=== PATIENT | male | born 1940 | race Caucasian/White ===

== ENCOUNTER 2020-06-07 12:25 | Inpatient (IN) | payer MEDICARE, OTHER ==
[~2020-06-07] VITALS: Ht 170.2 cm; Wt 68.5 kg
--- NOTE | ~2020-06-07 | RHP ---
PATIENT: LEESA MORENO MEDICAL RECORD: [id number] ACCOUNT: [id number] LOCATION:[facility]1116 : 40 ADMISSION DATE: 06/07/20 REHABILITATION HISTORY AND PHYSICAL EXAMINATION POST ADMISSION PHYSICIAN EXAMINATION ADMITTING DIAGNOSES: Cerebrovascular accident and peritoneal dialysis. HISTORY OF PRESENT ILLNESS: The patient is admitted to inpatient rehab secondary to ischemic stroke. He is a 79-year-old gentleman who presented to the [facility] ER with extremity weakness and right-sided facial droop. The patient was undergoing peritoneal dialysis close to noon when he suddenly developed difficulty talking with associated facial droop and facial redness. There was no extremity weakness. EMS was activated. The patient has a past history of hypertension, AFib. He was not on anticoagulation. He has got hyperlipidemia, COPD, and end-stage renal disease, on peritoneal dialysis. The patient was admitted to the ICU with CVA and acute ischemic stroke involving the left middle cerebral artery territory per CT. The patient was continued on appropriate treatment. He had inpatient dialysis done there. The patient was seen and evaluated by PT and OT there. He has severe spoken language expression characterized by poor naming and repetition. He has hard time finding his words at this time, so he will definitely need inpatient therapy. He has also got dysphagia. He is on a renal pureed diet with honey thick liquids and crushed medications. The patient on physical therapy, static and dynamic sitting is fair. His standing is fair. He is min assist for bed mobility, supine to sit, sit to stand and bed to chair. He is actually requiring 2 people assist. The patient is continued on his appropriate medications. He will need to be monitored closely for his cognition, medical adjustments, monitor pain control, decreased activity tolerance, decreased strength, balance deficit, decreased range of motion, gait disturbance and impaired mobility. These are all barriers to his discharge home. He will also require intensive therapy and medical management and actually to get back to his prior level of functioning. COMORBIDITIES: In this patient include atrial fib, altered mental status, aphasia, bradycardia, coronary artery disease, chronic back pain, COPD, degenerative disc disease, debility, decreased mobility, decrease in physical functioning, difficulty walking, degenerative joint disease, reflux, hypertension, nausea, right-sided weakness, and safety awareness problems. PAST MEDICAL HISTORY: Significant for hypertension, atrial fib. He has hyperlipidemia, COPD, end-stage renal disease, chronic back pain, chronic kidney disease. He has got an enlarged prostate, inflammatory arthritis, nutritional induced anemia. PAST SURGICAL HISTORY: Includes a Watchman procedure. He has had renal ablation, transrectal renal ultrasound, lumbar laminectomy. He has had a kyphoplasty. ALLERGIES: OXYCODONE AND LYRICA. CURRENT MEDICATIONS: He is on Uloric 40 mg daily, mag-ox 400 mg daily, aspirin chewable 81 mg daily, Pepcid 20 mg daily, Plavix 75 mg daily, amlodipine 10 mg daily, spironolactone 25 mg b.i.d., Bumex 2 mg b.i.d., atorvastatin 80 mg at bedtime, Eliquis 2.5 mg b.i.d., Perforomist 20 mcg daily. He is on budesonide 0.5 mg b.i.d., Zofran 4 mg q.6 hours p.r.n., DuoNeb updrafts, and polyethylene HISTORY AND PHYSICAL [id number] LEESA MORENO RAY glycol 17 grams in 8 ounces of water daily. HABITS: No alcohol or tobacco use. FAMILY HISTORY: Noncontributory. SOCIAL HISTORY: The patient hopes to return back home and get back to his prior level of functioning. REVIEW OF SYSTEMS: GENERAL: He does complain of some weakness and fatigue. HEENT: Denies cold, cough, congestion. CARDIOVASCULAR: Denies any chest pain. OBJECTIVE: VITAL SIGNS: Stable. He does appear to be somewhat bradycardic consistently. His blood pressures are somewhat elevated on the systolic range. GENERAL: A well-developed gentleman in no acute distress, alert upon exam. HEENT: Normocephalic and atraumatic. Mucosa moist. NECK: Supple with no lymphadenopathy. LUNGS: Clear in upper alan. No wheezing or rales. HEART: Somewhat bradycardic. ABDOMEN: Soft, benign, nondistended. Positive bowel sounds times 4. EXTREMITIES: No clubbing, cyanosis or edema. NEUROLOGIC: He has got diffuse weakness, right greater than left. He does have some difficulty with enunciation. LABORATORY DATA: His white count 6.2, H&H of 10 and 34 and platelet count is noted to be 138. His other labs are pending at this time. ASSESSMENT: This is a 79-year-old gentleman admitted to the rehab with a working diagnosis cerebrovascular accident complicated by peritoneal dialysis. The patient has potential to make improvements here in the rehab. He will require: A. Physical therapy to improve gait, all transfer skills and bed mobility to a modified independent level. B. Occupational therapy to improve activities of daily living. C. Case management to help with discharge planning and placement options. D. Nutrition to assist with nutritional needs. E. Rehabilitation nursing to assist in monitoring the patient's underlying medical conditions and to assist with any type of bowel or bladder management. 1. The patient's current medication and medical care will be continued. 2. Will be placed on standard fall precautions. 3. The patient's estimated length of stay approximately 7-10 days. We will discuss the patient during care team staff meeting this week. Appreciate nephrology following this with him throughout his stay and managing his renal functions. I will see him again in the a.m. TRANSINT:[id number] Voice Confirmation ID: [id number] DOCUMENT ID: [id number] 06/19/2020 michaela GROVES notes whether there has been none or any medical/functional change since admission: - No change since preadmission screen. HISTORY AND PHYSICAL [id number] LEESA MORENO attests patient continues to be appropriate for IRF: - Continues to be appropriate. MAXI MELGOZA MD CC: [id number] DICTATION DATE: 06/08/20904 PHYSIOTHERAPY PRACTICE MANAGER: 06/08/20 104 ADM IN [facility] [address] [place] [address]
--- NOTE | 2020-06-07 16:24 | NUR ---
RECIEVED FROM [facility] PER AMBULANCE TO ROOM 1116.ALERT.SPEECH SLURRED.ORIENTED TO ROOM AND SURROUNDINGS.CLIN REACH.ON NECTAR THICK LIQUIDS.
[2020-06-07 18:13] VITALS: BP 160/58; BMI 23.8
[2020-06-07] MEDS ORDERED: PLAVIX75 MG PO (18:44)
[2020-06-07] MEDS ORDERED: BUMEX2 MG PO (18:44)
[2020-06-07] MEDS ORDERED: NORVASC5 MG PO (18:45)
[2020-06-07] MEDS ORDERED: CARAFATE1 G PO (18:45)
[2020-06-07] MEDS ORDERED: ALDACTONE25 MG PO (18:45)
[2020-06-07] MEDS ORDERED: PROAIR HFA8.5 G1 (18:46)
[2020-06-07] MEDS ORDERED: PLAVIX75 MG (18:46)
[2020-06-07] MEDS ORDERED: ELIQUIS2.5 MG PO (18:47)
[2020-06-07] MEDS ORDERED: LIPITOR40 MG PO (18:47)
[2020-06-07] MEDS ORDERED: NORVASC5 MG (18:48)
[2020-06-07] MEDS ORDERED: BAYER CHEWABLE81 MG PO (18:48)
[2020-06-07] MEDS ORDERED: ULORIC40 MG PO (18:49)
[2020-06-07] MEDS ORDERED: MAG-OX 400 MG400 MG PO (18:49)
[2020-06-07] MEDS ORDERED: PROTONIX40 MG PO (18:49)
[2020-06-07] MEDS ORDERED: CARDURA4 MG PO (18:50)
[2020-06-07 19:00] VITALS: BP 169/60
--- NOTE | 2020-06-07 19:28 | NUR ---
NOTIFIED TEODORA BANKS APN DOCUMENT ANALYST FOR RENAL FOR CONSULT
--- NOTE | 2020-06-07 19:42 | NUR ---
AWAKE AND RESTING IN BED. PD EXCHANGE COMPLETE. ALERT WITH NOTED CONFUSION AND APHASIA. HAS WORD SALAD. RESPIRATIONS UNLABORED. PERITONEAL CATHETER INTACT. RENAL GROUP CONSULTED. NO ACUTE DISTRESS NOTED. CALL LIGHT IN REACH.
[2020-06-08] VITALS: BP 153/75
--- NOTE | 2020-06-08 06:22 | NUR ---
PD EXCHANGE IN PROGRESS. QUIET HOURS. NO ACUTE DISTRESS NOTED. CONTINUES TO HAVE WORD SALAD. DID USE URINAL THIS SHIFT AND HAD NO INCONTINENCE EPISODES. PD CATH IN PLACE.
[2020-06-08 06:26] VITALS: BP 157/63
[2020-06-08 09:00] LABS: BASOPHILS 0.6 % (0-2); EOSINOPHILS 3.2 % (0-7); HEMOGLOBIN 10.7 g/dL (13.5-17.5); IMMATURE GRANULOCYTES 0.3 % (0-5); LYMPHOCYTE ABS# 0.68 10x3/uL (1.32-3.57); MCH 27.1 pg (26.0-34.0); MCHC 31.5 g/dL (31.0-37.0); MCV 86.1 fL (80.0-100.0); MEAN PLATELET VOLUME 10.2 fL (7.4-10.4); MONOCYTES 15.1 % (2-11); NEUTROPHILS 69.8 % (40-80); PLATELET COUNT 138 10x3/uL (130-400); RBC 3.95 10x6/uL (4.20-6.10); RDW 20.1 % (11.5-14.5); WBC 6.2 10x3/uL (4.8-10.8)
[2020-06-08 09:22] LABS: ANION GAP 12.4 mmol/L (8-16); CALCIUM 8.6 mg/dL (8.5-10.1); CARBON DIOXIDE 28.9 mmol/L (21.0-32.0); CREATININE - SERUM 2.4 mg/dL (0.6-1.3); POTASSIUM - SERUM 3.3 mmol/L (3.5-5.1)
[2020-06-08 12:00] VITALS: BP 146/78
--- NOTE | 2020-06-08 12:14 | NUR ---
PATIENT ADMITTED TO [facility] FROM AN OUTSIDE FACILITY. DISCHARGE PLANS ARE FOR PATIENT TO HIM TO RETURN TO HIS HOME. WILL CONTINUE TO FOLLOW WITH PATIENT.
--- NOTE | 2020-06-08 13:27 | NUR ---
SITTING UP IN BED. HEAD OF BED APPX 80 DEGREES. HE IS FEEDING HIMSELF LUNCH SLOWLY. LIQUIDS ARE THICKENED. NO COUGHING OR CHOKING NOTED AFTER SWALLOWING. GROSSLY WEAK. SPEECH SLURRED. MOVEMENTS SLOW. CALL LIGHT IN REACH
[2020-06-08 16:37] VITALS: Ht 170.2 cm; Wt 68.5 kg
[2020-06-08 18:30] VITALS: BP 126/41
--- NOTE | 2020-06-08 18:49 | NUR ---
BEDSIDE REPORT COMPLETE. RECEIVED PT SITTING UP IN W/C. ALERT AND ORIENTED X1. DENIES ANY NEEDS OR PAIN. SLOW TO RESPOND AND INCONSISTANT WITH FOLLOWING DIRECTIONS. PD CATH TO RUQ. NO IV OR OXYGEN. NO DISTRESS NOTED. CALL LIGHT AND WATER WITHIN REACH. DES ALARM ON. CPOC
[2020-06-08 21:25] VITALS: BP 126/41
--- NOTE | 2020-06-09 00:16 | NUR ---
PT LYING IN BED SUPINE EYES CLOSED RESTING. HOB ELEVATED. PD DRAIN STARTED. RR EVEN AND UNLABORED. DES ALARM ON
--- NOTE | 2020-06-09 00:55 | NUR ---
PD DRAIN OUT COMPLETED 500ML. STARTED PD IN
--- NOTE | 2020-06-09 04:04 | NUR ---
PT LYING IN BED ON LEFT SIDE EYES CLOSED RESTING. RR EVEN AND UNLABORED. DES ALARM ON
[2020-06-09 05:55] VITALS: BP 155/54
--- NOTE | 2020-06-09 10:09 | NUR ---
PATIENTS PCP IS DR. GROVER WOLF.
[2020-06-09 12:24] VITALS: BP 149/57
[2020-06-09 18:26] VITALS: BP 148/58
--- NOTE | 2020-06-09 18:50 | NUR ---
BEDSIDE REPORT COMPLETE. RECEIVED PT SITTING UP IN BED. ALERT AND RESPONSIVE. PT IS APHASIC SPEECH IS GARBLED MAJORITY OF THE TIME, FEW WORDS UNDERSTOOD. PT DOES ATTEMPT TO COMMUNICATE, BUT DOES GET FRUSTRATED WHEN UNABLE TO VOICE NEEDS. NO IV OR OXYGEN NOTED. PD CATH INTACT RLQ. DRESSING INTACT NO DRAINAGE NOTED. GENERALIZED BRUISING NOTED. SCAB TO BRIDGE OF NOSE LOOSE SOME BLEEDING NOTED. BANDAID APPLIED. CALL LIGHT AND NECTAR THICK WATER WITHIN REACH. DES ALARM ON. CPOC
[2020-06-09 20:28] VITALS: BP 148/58
[2020-06-10 00:16] VITALS: BP 151/57
--- NOTE | 2020-06-10 02:14 | NUR ---
PT LYING IN BED ON LEFT SIDE EYES CLOSED RESTING. RR EVEN AND UNLABORED. DES ALARM ON
[2020-06-10 06:08] VITALS: BP 152/58
--- NOTE | 2020-06-10 06:26 | NUR ---
PT LYING IN BED EYES CLOSED RESTING. RR EVEN AND UNLABORED. NO ACUTE CHANGES IN CONDITION NOTED THIS SHIFT. DES ALARM ON
--- NOTE | 2020-06-10 08:00 | NUR ---
SHIFT ASSMT COMPLETED.
--- NOTE | 2020-06-10 12:00 | NUR ---
EATING LUNCH. VISITING
[2020-06-10 12:05] VITALS: BP 150/51
--- NOTE | 2020-06-10 14:20 | NUR ---
Nutrition Follow-up: ESRD on PD Diet: Renal Mech Chopped Gravy to all meats NECTAR Thick liquids + Nepro TID PO intake: none recorded in EMR or on door sheet. Spoke with patient at bedside who states that his appetite is getting a little better. States that he likes and drinks Nepro when the kitchen sends it. Last BM: 06/09/20 Wt: 151# (06/08/20) Meds noted: senokot, miralax, magox, bumex Labs noted: PO4 3.2(WNL) Recommend continue current renal diet, texture/consistency per [employer]ER recommendations. Continue Nepro TID. RD will follow-up 06/15/20.
--- NOTE | 2020-06-10 16:11 | NUR ---
CARE TEAM MEETING: PATIENT IS PROGRESSING IN THERAPY. HIS TENATIVE DC DATE IS 06/25/20. WILL CONTINUE TO FOLLOW WITH PATIENT. HE WILL BE RA AT NEXT MEETING.
[2020-06-10 18:27] VITALS: BP 141/59
--- NOTE | 2020-06-10 19:52 | NUR ---
AWAKE AND ALERT. RESTNIG IN BED WITH RESPIRATIONS UNLABORD. NO DISTRESS NOTED. ASHASIAC. WEAK IN ALL EXTREMITIES. PERITONEAL DIALYSIS TUBE IN PLACE. NO DISTRESS NOTED. CALL LIGHT IN REACH.
[2020-06-11 00:15] VITALS: BP 151/57
[2020-06-11 05:11] VITALS: BP 150/58
--- NOTE | 2020-06-11 05:40 | NUR ---
QUIET HOURS. RESTING IN BED WITH RESPIRATIONS UNLABORED. MEDICATED RECENTLY FOR BACK AND LEG PAIN. SEE MAR. CALL LIGHT IN REACH.
--- NOTE | 2020-06-11 05:43 | NUR ---
QUIET HOURS. NO ACUTE CHANGES IN CONDITION THIS SHIFT. PD EXCHANGES DONE. PD CATHETER INTACT. RESTING IN BED WITH NO DISTRESS NOTED.
[2020-06-11 11:48] VITALS: BP 129/51
[2020-06-11 18:05] VITALS: BP 159/65
--- NOTE | 2020-06-11 19:32 | NUR ---
AWAKE AND ALERT. RESTING IN BED WITH RESPIRATIONS UNLABORED. APHASIC. PD CATHETER IN PLACE. NO ACUTE DISTRESS NOTED. CALL LIGHT IN REACH.
[2020-06-12 00:10] VITALS: BP 147/53
--- NOTE | 2020-06-12 05:35 | NUR ---
QUIET HOURS. NO ACUTE CHANGES IN CONDITION THIS SHIFT. RESTING IN BED WITH NO DISTRESS NOTED. PD CATHETER IN PLACE.
[2020-06-12 05:38] VITALS: BP 150/55
[2020-06-12 08:01] LABS: BASOPHILS 0.4 % (0-2); EOSINOPHILS 2.3 % (0-7); HEMATOCRIT 31.6 % (42.0-54.0); IMMATURE GRANULOCYTES 0.3 % (0-5); LYMPHOCYTES 10.7 % (15-50); MCH 26.9 pg (26.0-34.0); MCHC 31.6 g/dL (31.0-37.0); MCV 84.9 fL (80.0-100.0); MEAN PLATELET VOLUME 10.5 fL (7.4-10.4); MONOCYTES 10.2 % (2-11); NEUTROPHIL ABS# 5.67 10x3/uL (1.78-5.38); NEUTROPHILS 76.1 % (40-80); PLATELET COUNT 157 10x3/uL (130-400); RBC 3.72 10x6/uL (4.20-6.10); RDW 18.9 % (11.5-14.5); WBC 7.5 10x3/uL (4.8-10.8)
[2020-06-12 08:14] LABS: ALBUMIN 2.7 g/dL (3.4-5.0); ANION GAP 11.4 mmol/L (8-16); BILIRUBIN - TOTAL 1.42 mg/dL (0.2-1.3); CALCIUM 8.1 mg/dL (8.5-10.1); CARBON DIOXIDE 31.2 mmol/L (21.0-32.0); CREATININE - SERUM 2.6 mg/dL (0.6-1.3); PHOSPHOROUS 3.4 mg/dL (2.5-4.9); PROTEIN - SERUM 5.8 g/dL (6.4-8.2)
[2020-06-12 08:18] LABS: POTASSIUM - SERUM 2.6 mmol/L (3.5-5.1)
[2020-06-12 12:22] VITALS: BP 134/54
--- NOTE | 2020-06-12 13:50 | NUR ---
HAS BEEN SITTING UP IN WC MORE TODAY. VISITED. DR HILLIARD (RENAL MD) ROUNDED THIS AFTERNOON. HIS APPETITE IS FAIR. SPEECH IS SLOW. FOLLOWS COMMANDS.
--- NOTE | 2020-06-12 18:55 | NUR ---
BEDSIDE REPORT COMPLETE. RECEIVED PT LYING IN BED. ALERT AND RESPONSIVE. PT IS APHASIC. SLOW TO RESPOND VERBALLY WILL FOLLOW COMMANDS. RLQ PD CATH INTACT. DRESSING C/D/I. PD CAP INTACT. BUE BRUISED. BLE SCATTERED BRUISING NOTED. PT DENIES ANY PAIN. CALL LIGHT AND WATER WITHIN REACH. DES ALARM ON. CPOC
[2020-06-12 19:45] VITALS: BP 151/57
--- NOTE | 2020-06-12 23:10 | NUR ---
BLADDER SCANNED PT PER ORDER. SCAN REVEALED 366ML. PT REFUSED STRAIGHT CATH. PT URINATED 250ML IN URINAL. RESCANNED BLADDER STILL RETAINING 266ML. PT STILL REFUSES TO ALLOW THIS NURSE TO STRAIGHT CATH. OFFERED PT A MALE NURSE, PT STILL REFUSED. EDUCATED PT ON URINARY RETENTION. WILL RESCAN 3-4 HOURS.
[2020-06-13 00:02] VITALS: BP 138/51
--- NOTE | 2020-06-13 03:17 | NUR ---
PT LYING IN BED SUPINE EYES CLOSED RESTING. RR EVEN AND UNLABORED. CALL LIGHT WITHIN REACH. DES ALARM ON.
--- NOTE | 2020-06-13 04:16 | NUR ---
BLADDER SCANNED REVEALED 243ML. FOUND PT BRIEF WET. PT STATED NEED TO URINATE. PROVIDED URINAL PT VOIDED 200ML MICHEL URINE. PROVIDED PT BATH WIPE FOR PERIAREA, PT PERFORMED HYGIENE. ASSISTED WITH DONNING ON CLEAN BRIEF. NO OTHER NEEDS VOICED. PD DRAIN OUT STARTED. DES ALARM ON
--- NOTE | 2020-06-13 05:33 | NUR ---
PT LYING IN BED SUPINE EYES CLOSED RESTING. NO ACUTE CHANGES IN CONDITION THIS SHIFT. PD CATH DRESSING CHANGED. NO DRAINAGE NOTED. CLEANSED AREA WITH NS PAT DRY 4X4, APPLIED GENTAMYCIN CREAM TO PD SITE, COVERED WITH DRAIN GAUZE, SECURED WITH TAPE. SECURED PD CATH TUBING TO ABDOMEN. PT TOLERATED WELL. PT DENIES ANY PAIN. ENCOURAGED URINATION, VOIDED 100ML MICHEL URINE IN URINAL. CALL LIGHT AND WATER WITHIN REACH. DES ALARM ON
[2020-06-13 05:49] VITALS: BP 144/54
--- NOTE | 2020-06-13 10:56 | NUR ---
SITTING UP IN BED RESTING QUIETLY AND WATCHING TV. POSITION CHANGES DONE DURING PD TO TRY TO INCREASE DRAINING AMOUNT. HE DENIES NEEDS. APPETITE POOR. VOIDS IN URINAL.
[2020-06-13 12:00] VITALS: BP 143/59
--- NOTE | 2020-06-13 18:45 | NUR ---
BEDSIDE REPORT COMPLETE. RECEIVED PT LYING IN BED. ALERT AND RESPONSIVE. REPOSITIONED PT TO TOP OF BED WITH ASSIST FROM MINOO TRUONG. BUE AND LE BRUISING NOTED. PT HAS EXPRESSIVE APHASIA BUT CAN ANSWER YES AND NO QUESTIONS WITH FEW OTHER COMPREHENSABLE WORDS. PT HAS TROUBLE WORD FINDING WELL. RLQ PD CATH DRESSING INTACT. TUBING SECURED TO ABDOMEN. DENIES ANY PAIN OR NEEDS. CALL LIGHT AND WATER WITHIN REACH. DES ALARM ON. CPOC
[2020-06-13 19:00] VITALS: BP 144/54
--- NOTE | 2020-06-13 22:02 | NUR ---
PD DRAIN OFF STARTED PER DR. HILLIARD ORDERS. PT LYING IN BED ON RIGHT SIDE RESTING COMFORTABLY. WILL CHANGE POSITION IF NEEDED TO ASSIST WITH DRAINOFF.
--- NOTE | 2020-06-13 22:25 | NUR ---
1400ML PD OUTPUT. PLACED PT SUPINE IN REVERSE [place] AND ELEVATED HEIGHT OF BED TO ASSIST WITH FURTHER DRAIN OFF.
--- NOTE | 2020-06-13 22:45 | NUR ---
1800ML PD DRAIN OFF. DISCONNECTED PT AND APPLIED NEW CAP. ASSISTED PT WITH URINAL 200ML CONCENTRATED URINE VOIDED. POSITIONED PT ON RIGHT SIDE USING PILLOW FOR SUPPORT. PT DENIES ANY OTHER NEEDS OR PAIN. CALL LIGHT WITHIN REACH. DES ALARM ON.
[2020-06-14] VITALS (7 sets, daily range): BP systolic 129–155; BP diastolic 53–68
--- NOTE | 2020-06-14 01:44 | NUR ---
PT LYING IN BED ON RIGHT SIDE EYES CLOSED RESTING. TOILETING OFFERED PT DENIES NEEDS. REPOSITIONED PT TO LEFT SIDE USING PILLOW FOR SUPPORT. NO OTHER NEEDS VOICED. PD CATH SECURED TO ABDOMEN. CALL LIGHT WITHIN REACH. DES ALARM ON.
--- NOTE | 2020-06-14 03:30 | NUR ---
INCONTINENT CARE PROVIDED FOR URINE INCONTINENCY. COMPLETE LINEN CHANGE AND BEDBATH PERFORMED. ASSISTED PT WITH MOD ASSIST IN DRESSING. PT DENIES ANY NEEDS. POSITIONED ON LEFT SIDE USING PILLOWS FOR SUPPORT. CALL LIGHT AND WATER WITHIN REACH. DES ALARM ON
--- NOTE | 2020-06-14 05:16 | NUR ---
PT LYING IN BED ON LEFT SIDE EYES OPEN. REPOSITIONED TO RIGHT SIDE USING PILLOWS FOR SUPPORT. TOILETING OFFERED. PT DENIES NEED. DENIES PAIN. NO ACUTE CHANGES IN CONDITION THIS SHIFT. CALL LIGHT AND WATER WITHIN REACH. DES ALARM ON
[2020-06-14 07:57] LABS: BASOPHILS 0.3 % (0-2); EOSINOPHILS 1.3 % (0-7); HEMATOCRIT 29.4 % (42.0-54.0); HEMOGLOBIN 9.5 g/dL (13.5-17.5); IMMATURE GRANULOCYTES 0.1 % (0-5); LYMPHOCYTE ABS# 0.82 10x3/uL (1.32-3.57); LYMPHOCYTES 11.9 % (15-50); MCH 27.5 pg (26.0-34.0); MCHC 32.3 g/dL (31.0-37.0); MEAN PLATELET VOLUME 9.9 fL (7.4-10.4); MONOCYTES 11.6 % (2-11); NEUTROPHIL ABS# 5.16 10x3/uL (1.78-5.38); NEUTROPHILS 74.8 % (40-80); PLATELET COUNT 138 10x3/uL (130-400); RBC 3.46 10x6/uL (4.20-6.10); WBC 6.9 10x3/uL (4.8-10.8)
[2020-06-14 08:12] LABS: ALBUMIN 2.6 g/dL (3.4-5.0); ANION GAP 11.5 mmol/L (8-16); BILIRUBIN - TOTAL 1.53 mg/dL (0.2-1.3); CALCIUM 7.8 mg/dL (8.5-10.1); CARBON DIOXIDE 30.6 mmol/L (21.0-32.0); CREATININE - SERUM 2.7 mg/dL (0.6-1.3); PHOSPHOROUS 2.8 mg/dL (2.5-4.9); POTASSIUM - SERUM 3.1 mmol/L (3.5-5.1); PROTEIN - SERUM 5.2 g/dL (6.4-8.2)
--- NOTE | 2020-06-14 10:19 | NUR ---
RESTING QUIETLY IN BED. ROLLED FROM SIDE TO SIDE. SEEMS TO BE DRAINING BETTER WHEN IN [facility]. SEVERAL BRUISING AREAS NOTED TO LEGS AND ARMS. SPEECH GARBLED. SLOW TO FOLLOW COMMANDS. APPETITE POOR. STILL MAKES URINE AND USES URINAL. IS CONT OF BOWEL AND BLADDER. TRAY SET UP FOR MEALS. SPOT CHECKS DONE FOR SWALLOWING PRECAUTIONS. LUNG SOUNDS ARE WET BUT HE CAN COUGH AND CLEAR AIRWAY AND LUNGS. CALL LIGHT IN REACH. BED IN LOWEST POSITION, SIDE RAILS UP X2.
--- NOTE | 2020-06-14 18:47 | NUR ---
BEDSIDE REPORT COMPLETE. RECEIVED PT SITTING UP IN BED. ALERT AND RESPONSIVE. PT HAS EXPRESSIVE APHASIA. RLQ PD CATH AND DRESSING INTACT. REPORTED DRESSING CHANGE TODAY PER ALEXI HENNESSY. PT DENIES ANY PAIN. BRUISING TO BLE AND UE. PT BLEEDING ON LEFT SIDE OF FACE APPARENTLY SCRATCHED HIMSELF. BANDAID APPLIED. CALL LIGHT AND WATER WITHIN REACH. DES ALARM ON. CPOC
--- NOTE | 2020-06-14 23:56 | NUR ---
PT LYING IN BED ON RIGHT SIDE EYES CLOSED RESTING. REPOSITIONED TO LEFT SIDE DENIES ANY NEEDS OR PAIN. TOILETING OFFERED PT DENIES NEED. CALL LIGHT WITHIN REACH. DES ALARM ON
--- NOTE | 2020-06-15 02:30 | NUR ---
PT LYING IN BED SUPINE EYES CLOSED RESTING. POSITIONED TO RIGHT SIDE. DENIES ANY NEEDS. NO DISTRESS NOTED. CALL LIGHT WITHIN REACH. DES ALARM ON
--- NOTE | 2020-06-15 04:48 | NUR ---
PT LYING IN BED ON RIGHT SIDE EYES CLOSED RESTING. REPOSITIONED TO LEFT SIDE. 200ML YELLOW URINE EMPTIED FROM URINAL. NO ACUTE CHANGES IN CONDITION THIS SHIFT. CALL LIGHT WITHIN REACH. DES ALARM ON
[2020-06-15 05:56] VITALS: BP 141/53
--- NOTE | 2020-06-15 10:56 | NUR ---
Nutrition Re-Assessment ESRD on PD Diet: Renal High K foods PO intake: ~58% average x last 6 meals recorded Last BM: 06/11/20 Wt: 151# (06/08/20) Meds noted: k-dur, miralax, senokot, magox, bumex Labs noted: K 3.1(L), BUN 35(H), Cr 2.7(H), GFR 24(L), Alb 2.6(L) Skin: PU to buttocks Estimated nutrition needs: [id number] sandy (25-35 Act), 82-89gms protein (1.2-1.3), 1000mL +UOP (or per MD) Nutrition diagnosis: Altered nutrition related lab values r/t ESRD AEB BUN 35(H), Cr 2.7(H), GFR 24(L). Nutrition goals: -PO intake =/>75% -Dry weight stable Recommendations/Interventions: -Continue current diet/or per Renal MD -Will continue to honor food preferences within diet restrictions -RD will follow-up 06/17/20.
[2020-06-15 12:07] VITALS: BP 133/51
--- NOTE | 2020-06-15 12:17 | NUR ---
SITTING UP IN WC IN ROOM WAITING ON LUNCH. DENIES NEEDS OR PAIN. BUE AND HEAD SHAKES BUT HE CAN DO ALOT OF THINGS FOR HIMSELF. BRUISING NOTED TO UPPER AND LOWER EXTREMITIES. CALL LIGHT IN REACH
--- NOTE | 2020-06-15 19:41 | NUR ---
AWAKE AND ALERT. RESTING IN BED WITH RESPIRATIONS UNLABORED. DIALYSIS EXCHANGE COMPLETE. NO DISTRESS NOTED. CALL LIGHT IN REACH.
[2020-06-15 19:55] VITALS: BP 137/54
[2020-06-15 19:58] VITALS: BP 137/54
[2020-06-15 23:25] VITALS: BP 149/54
--- NOTE | 2020-06-16 05:28 | NUR ---
QUIET HOURS. NO ACUTE CHANGES IN CONDITION THIS SHIFT. RESTING IN BED WITH NO DISTRESS NOTED. PD CATHETER IN PLACE.
[2020-06-16 05:54] VITALS: BP 137/54
[2020-06-16 06:34] LABS: BASOPHILS 0.6 % (0-2); EOSINOPHILS 1.8 % (0-7); HEMATOCRIT 27.1 % (42.0-54.0); HEMOGLOBIN 8.7 g/dL (13.5-17.5); IMMATURE GRANULOCYTES 0.2 % (0-5); LYMPHOCYTE ABS# 0.81 10x3/uL (1.32-3.57); LYMPHOCYTES 12.4 % (15-50); MCH 27.3 pg (26.0-34.0); MCHC 32.1 g/dL (31.0-37.0); MEAN PLATELET VOLUME 9.9 fL (7.4-10.4); MONOCYTES 12.4 % (2-11); NEUTROPHIL ABS# 4.76 10x3/uL (1.78-5.38); NEUTROPHILS 72.6 % (40-80); PLATELET COUNT 160 10x3/uL (130-400); RBC 3.19 10x6/uL (4.20-6.10); RDW 18.6 % (11.5-14.5); WBC 6.6 10x3/uL (4.8-10.8)
[2020-06-16 06:58] LABS: ALBUMIN 2.6 g/dL (3.4-5.0); ANION GAP 11.4 mmol/L (8-16); BILIRUBIN - TOTAL 1.54 mg/dL (0.2-1.3); CALCIUM 8.2 mg/dL (8.5-10.1); CARBON DIOXIDE 31.1 mmol/L (21.0-32.0); CREATININE - SERUM 2.9 mg/dL (0.6-1.3); MAGNESIUM - SERUM 1.6 mg/dL (1.8-2.4); POTASSIUM - SERUM 3.5 mmol/L (3.5-5.1)
[2020-06-16 07:00] LABS: PHOSPHOROUS 3.8 mg/dL (2.5-4.9)
[2020-06-16 12:10] VITALS: BP 114/51
--- NOTE | 2020-06-16 19:59 | NUR ---
AWAKE AND ALERT. RESTING IN BED WITH RESPIRATIONS UNLABORED. NO DISTRESS NOTED. CALL LIGHT IN REACH. PD CATHETER IN PLACE.
[2020-06-16 21:04] VITALS: BP 135/50
[2020-06-17 00:10] VITALS: BP 136/53
--- NOTE | 2020-06-17 04:57 | NUR ---
QUIET HOURS. NO ACUTE CHANGES IN CONDITION THIS SHIFT. RESTING IN BED WITH NO DISTRESS NOTED. PD CATHETER IN PLACE. CALL LIGHT IN REACH.
[2020-06-17 06:00] VITALS: BP 135/50
[2020-06-17 07:34] LABS: BASOPHILS 0.5 % (0-2); EOSINOPHILS 2.1 % (0-7); HEMATOCRIT 27.4 % (42.0-54.0); HEMOGLOBIN 8.7 g/dL (13.5-17.5); IMMATURE GRANULOCYTES 0.2 % (0-5); LYMPHOCYTE ABS# 0.66 10x3/uL (1.32-3.57); LYMPHOCYTES 10.6 % (15-50); MCH 27.1 pg (26.0-34.0); MCHC 31.8 g/dL (31.0-37.0); MCV 85.4 fL (80.0-100.0); MEAN PLATELET VOLUME 10.5 fL (7.4-10.4); MONOCYTES 9.5 % (2-11); NEUTROPHIL ABS# 4.81 10x3/uL (1.78-5.38); NEUTROPHILS 77.1 % (40-80); PLATELET COUNT 180 10x3/uL (130-400); RBC 3.21 10x6/uL (4.20-6.10); RDW 18.4 % (11.5-14.5); WBC 6.2 10x3/uL (4.8-10.8)
[2020-06-17 07:51] LABS: % SATURATION 27 % (15-55); IRON 45 ug/dl (35-150); TOTAL IRON BIND CAPACITY 162 ug/dl (260-445); UNSAT IRON BIND CAPACITY 117 ug/dl (150-375)
--- NOTE | 2020-06-17 08:00 | NUR ---
SHIFT ASSMT COMPLETED.
[2020-06-17 08:17] LABS: ANION GAP 10.2 mmol/L (8-16); CALCIUM 8.6 mg/dL (8.5-10.1); CARBON DIOXIDE 30.2 mmol/L (21.0-32.0); CREATININE - SERUM 2.9 mg/dL (0.6-1.3); POTASSIUM - SERUM 3.4 mmol/L (3.5-5.1)
--- NOTE | 2020-06-17 12:00 | NUR ---
WILL DISCUSS CARE IN MEETING TODAY.
[2020-06-17 12:04] VITALS: BP 134/47
--- NOTE | 2020-06-17 14:24 | NUR ---
Nutrition Follow-up: Diet: Renal with high potassium foods PO intake: ~21% average x last 6 meals. Spoke with patient's at bedside. She states that patient is "not a big eater at home either." He had an episode of vomiting after dinner last night. His brought him in a milkshake and a diet coke today. I discussed with her that both the milk shake and diet coke are high in PO4 and typically are not allowed on a renal diet. However, his last checked PO4 is WNL and he is not eating much of his meal trays so it was okay for now. states that she did not know that and requested that I bring her Renal diet education for when patient is discharged back home. States that patient is drinking Nepro when kitchen brings them. Last BM: 06/16/20 Wt: 151# (06/08/20) Meds noted: Magox, retacrit, k-dur, miralax, senokot, bumex Labs noted: K 3.4(L), BUN 41(H), Cr 2.9(H), GFR 22(L), Glu 115(H) Skin: DTI PU to coccyx Recommendations/Interventions: -Will re-order Nepro with meals. -Will provide renal diet education prior to discharge. -Will continue to honor food preferences within diet restrictions. -RD will re-assess 06/22/20.
[2020-06-17 18:28] VITALS: BP 164/50
--- NOTE | 2020-06-17 19:05 | NUR ---
BEDSIDE REPORT COMPLETE. RECEIVED PT LYING IN BED SUPINE. ALERT AND ORIENTED X3. PT IS APHASIC. SPEECH IS SLURRED AT TIMES. BUE/BLE BRUISING NOTED. RLQ PD CATH SECURED TO ABDOMEN WITH STAT LOCK. DRESSING C/D/I. DENIES ANY PAIN OR NEEDS. CALL LIGHT AND WATER WITHIN REACH. DES ALARM ON. CPOC
[2020-06-18 00:17] VITALS: BP 152/50
--- NOTE | 2020-06-18 03:30 | NUR ---
PT LYING IN BED EYES CLOSED RESTING. RR EVEN AND UNLABORED. CALL LIGHT WITHIN REACH. DES ALARM ON
[2020-06-18 06:20] VITALS: BP 152/48
[2020-06-18 08:44] LABS: BASOPHILS 1.1 % (0-2); HEMATOCRIT 26.9 % (42.0-54.0); HEMOGLOBIN 8.5 g/dL (13.5-17.5); IMMATURE GRANULOCYTES 0.4 % (0-5); LYMPHOCYTE ABS# 0.59 10x3/uL (1.32-3.57); LYMPHOCYTES 10.9 % (15-50); MCH 27.2 pg (26.0-34.0); MCHC 31.6 g/dL (31.0-37.0); MCV 86.2 fL (80.0-100.0); MEAN PLATELET VOLUME 9.5 fL (7.4-10.4); MONOCYTES 13.3 % (2-11); NEUTROPHIL ABS# 3.93 10x3/uL (1.78-5.38); NEUTROPHILS 72.3 % (40-80); PLATELET COUNT 181 10x3/uL (130-400); RBC 3.12 10x6/uL (4.20-6.10); RDW 18.5 % (11.5-14.5); WBC 5.4 10x3/uL (4.8-10.8)
[2020-06-18 08:54] LABS: ALBUMIN 2.5 g/dL (3.4-5.0); ANION GAP 8.8 mmol/L (8-16); BILIRUBIN - TOTAL 1.04 mg/dL (0.2-1.3); CALCIUM 8.3 mg/dL (8.5-10.1); CARBON DIOXIDE 32.2 mmol/L (21.0-32.0); CREATININE - SERUM 2.9 mg/dL (0.6-1.3); PHOSPHOROUS 2.6 mg/dL (2.5-4.9); PROTEIN - SERUM 5.2 g/dL (6.4-8.2)
--- NOTE | 2020-06-18 16:29 | NUR ---
LEFT IN WC FOR MRI. SPEECH IS SO GARBLED YOU CAN NOT UNDERSTAND ANY WORDS. HE TRIES TO MAKE HIS NEEDS KNOWN BUT IS CONFUSED AND WEAKER. HIS SKIN IS BRUISED TO HIS X4 EXTREMITIES. PD CATH SECURED TO [facility] AND IS GETTING PD EXCHEANGES ORDERED. HE IS VERY WOBBLY AND UNSTEADY. APPETITE VERY POOR. WAS HERE TODAY AND SHE TALKED WITH STAFF ABOUT PD, HD AND HIS DECLINE IN STRENGTH.
[2020-06-18 18:40] VITALS: BP 161/52
--- NOTE | 2020-06-18 18:55 | NUR ---
BEDSIDE REPORT COMPLETE. RECEIVED PT LYING IN BED VISITING WITH . ALERT WITH APHASIA AND GARBLED SPEECH. RLQ PD CATH AND DRESSING INTACT. DENIES ANY NEEDS OR PAIN. NO DISTRESS NOTED. CALL LIGHT AND WATER WITHIN REACH. DES ALARM ON. CPOC
[2020-06-19 00:09] VITALS: BP 158/52
--- NOTE | 2020-06-19 01:15 | NUR ---
PT LYING IN BED ON RIGHT SIDE EYES CLOSED RESTING. RR EVEN AND UNLABORED. CALL LIGHT AND URINAL WITHIN REACH. DES ALARM ON
--- NOTE | 2020-06-19 04:56 | NUR ---
PT LYING IN BED ON RIGHT SIDE EYES CLOSED RESTING. RR EVEN AND UNLABORED. NO ACUTE CHANGES IN CONDITION THIS SHIFT. CALL LIGHT WITHIN REACH. DES ALARM ON
[2020-06-19 06:22] VITALS: BP 162/52
[2020-06-19 07:53] LABS: BASOPHILS 1.1 % (0-2); EOSINOPHILS 2.2 % (0-7); HEMATOCRIT 26.2 % (42.0-54.0); HEMOGLOBIN 8.3 g/dL (13.5-17.5); IMMATURE GRANULOCYTES 0.4 % (0-5); LYMPHOCYTE ABS# 0.75 10x3/uL (1.32-3.57); MCH 27.4 pg (26.0-34.0); MCHC 31.7 g/dL (31.0-37.0); MCV 86.5 fL (80.0-100.0); MEAN PLATELET VOLUME 9.7 fL (7.4-10.4); NEUTROPHIL ABS# 3.83 10x3/uL (1.78-5.38); NEUTROPHILS 71.3 % (40-80); PLATELET COUNT 200 10x3/uL (130-400); RBC 3.03 10x6/uL (4.20-6.10); RDW 18.6 % (11.5-14.5); WBC 5.4 10x3/uL (4.8-10.8)
[2020-06-19 08:04] LABS: ANION GAP 15.6 mmol/L (8-16); CALCIUM 8.6 mg/dL (8.5-10.1); CARBON DIOXIDE 27.1 mmol/L (21.0-32.0); CREATININE - SERUM 2.7 mg/dL (0.6-1.3)
[2020-06-19 08:12] LABS: POTASSIUM - SERUM 4.7 mmol/L (3.5-5.1)
[2020-06-19 11:51] VITALS: BP 143/53
[2020-06-19 18:00] VITALS: BP 146/55
--- NOTE | 2020-06-19 19:38 | NUR ---
AWAKE AND ALERT. RESTING IN BED. GRUNTS OUT ONE OR TWO WORDS. RESPIRATIONS UNLABORED. NO DISTRESS NOTED. CALL LIGHT IN REACH.
[2020-06-20 00:10] VITALS: BP 138/58
--- NOTE | 2020-06-20 05:43 | NUR ---
QUIET HOURS. NO ACUTE CHANGES IN CONDITION THIS SHIFT. RESTING IN BED WITH NO DISTRESS NOTED. CALL LIGHT IN REACH. PD CATHETER IN PLACE.
[2020-06-20 06:17] VITALS: BP 157/55
[2020-06-20 08:08] LABS: BASOPHILS 0.9 % (0-2); EOSINOPHILS 2.7 % (0-7); HEMATOCRIT 27.1 % (42.0-54.0); HEMOGLOBIN 8.6 g/dL (13.5-17.5); IMMATURE GRANULOCYTES 0.4 % (0-5); LYMPHOCYTE ABS# 0.73 10x3/uL (1.32-3.57); MCH 27.7 pg (26.0-34.0); MCHC 31.7 g/dL (31.0-37.0); MCV 87.4 fL (80.0-100.0); MEAN PLATELET VOLUME 9.3 fL (7.4-10.4); MONOCYTES 12.8 % (2-11); NEUTROPHIL ABS# 3.96 10x3/uL (1.78-5.38); NEUTROPHILS 70.2 % (40-80); PLATELET COUNT 217 10x3/uL (130-400); RDW 18.6 % (11.5-14.5); WBC 5.6 10x3/uL (4.8-10.8)
[2020-06-20 08:16] LABS: ALBUMIN 2.5 g/dL (3.4-5.0); ANION GAP 10.2 mmol/L (8-16); BILIRUBIN - TOTAL 1.15 mg/dL (0.2-1.3); CARBON DIOXIDE 32.5 mmol/L (21.0-32.0); CREATININE - SERUM 2.9 mg/dL (0.6-1.3); PHOSPHOROUS 2.4 mg/dL (2.5-4.9); POTASSIUM - SERUM 4.7 mmol/L (3.5-5.1); PROTEIN - SERUM 5.8 g/dL (6.4-8.2)
[2020-06-20 12:00] VITALS: BP 149/86
[2020-06-20 18:00] VITALS: BP 154/46
[2020-06-20 19:00] VITALS: BP 152/48
--- NOTE | 2020-06-20 19:20 | NUR ---
AWAKE AND ALERT. RESTING IN BED WITH RESPIRATIONS UNLABORED. PD CATHETER IN PLACE. NO ACUTE DISTRESS NOTED. CALL LIGHT IN REACH.
[2020-06-21 00:26] VITALS: BP 128/47
--- NOTE | 2020-06-21 05:44 | NUR ---
QUIET HOURS. NO ACUTE CHANGES IN CONDITION THIS SHIFT. RESTING IN BED WITH NO DISTRESS NOTED. CALL LIGHT IN REACH. PD CATHETER INTACT.
[2020-06-21 06:16] VITALS: BP 155/58
--- NOTE | 2020-06-21 08:00 | NUR ---
SHIFT ASSMT COMPLETED.PLAN TO DISCHARGE TO UPSTAIRS TODAY.
--- NOTE | 2020-06-21 09:57 | NUR ---
RECEIVED REPORT FROM JESUS. PATIENT TO UNIT SOON.
--- NOTE | 2020-06-21 10:30 | NUR ---
REPORT CALLED TO PIO.DISCHARGED TO ROOM 2134/.BELONGINGS TAKEN.
== END 2020-06-21 10:30 | disposition short-term general hospital (02) | DRG 56 ==
LOC: D.REHAB 12:25
PROVIDERS: Internal Medicine; Internal Medicine Nephrology; ADMIT Emergency Medicine; ATTEND Emergency Medicine
DX: I69.322 Dysarthria following cerebral infarction (principal); I63.9 Cerebral infarction, unspecified; N18.6 End stage renal disease; I12.0 Hypertensive chronic kidney disease with stage 5 chronic kidney disease or end stage renal disease; R47.01 Aphasia; I48.20 Chronic atrial fibrillation, unspecified; I69.30 Unspecified sequelae of cerebral infarction; R13.0 Aphagia; I25.10 Atherosclerotic heart disease of native coronary artery without angina pectoris; J44.9 Chronic obstructive pulmonary disease, unspecified; R53.81 Other malaise; R26.2 Difficulty in walking, not elsewhere classified; K21.9 Gastro-esophageal reflux disease without esophagitis; R11.0 Nausea; R00.1 Bradycardia, unspecified; G89.29 Other chronic pain; M19.90 Unspecified osteoarthritis, unspecified site; Z99.2 Dependence on renal dialysis; E78.5 Hyperlipidemia, unspecified; K27.9 Peptic ulcer, site unspecified, unspecified as acute or chronic, without hemorrhage or perforation; M10.9 Gout, unspecified; R13.10 Dysphagia, unspecified

== ENCOUNTER 2020-06-21 06:24 | Inpatient (IN) | payer MEDICARE, OTHER ==
[~2020-06-21] VITALS: Ht 170.2 cm; Wt 69.6 kg
[~2020-06-21 06:24] MED LIST: ALDACTONE25 MG PO; BAYER CHEWABLE81 MG PO; BUMEX2 MG PO; CARAFATE1 G PO; CARDURA4 MG PO; ELIQUIS2.5 MG PO; LIPITOR40 MG PO; MAG-OX 400 MG400 MG PO; NORVASC5 MG; NORVASC5 MG PO; PLAVIX75 MG; PLAVIX75 MG PO; PROAIR HFA8.5 G1; PROTONIX40 MG PO; ULORIC40 MG PO
--- NOTE | 2020-06-21 10:34 | NUR ---
RECEIVED AND ADMITTED PATIENT TO ROOM 2134 AT THIS TIME FROM REHAB. PATIENT ABLE TO ASSIST WITH TRANSFER FROM WHEELCHAIR TO BED. CALL LIGHT PLACED WITHIN REACH. NO DISTRESS.
--- NOTE | 2020-06-21 10:59 | NUR ---
SPOKE WITH RENAL SUGAR COATING HAND AND REQUESTED CARDIAC CONSULT DUE TO MULTIPLE EMBOLIC STROKES AND BRADYCARDIA. HR 44 AT THIS TIME. DURING REPORT FROM REHAB, NURSE JESUS GIVING REPORT STATES THAT PATIENT DROPS TO THE 30'S. ORDERS RECIEVED FOR CARDIOLOGY CONSULT AND TELEMETRY.
--- NOTE | 2020-06-21 11:06 | NUR ---
CALLED POULTRY HUSBANDRY TEACHER JUDY AND REQUESTED PLAN CHECKER.
[2020-06-21 11:12] LABS: BASOPHILS 0.8 % (0-2); EOSINOPHILS 1.2 % (0-7); HEMATOCRIT 31.1 % (42.0-54.0); HEMOGLOBIN 9.7 g/dL (13.5-17.5); IMMATURE GRANULOCYTES 0.4 % (0-5); LYMPHOCYTE ABS# 0.91 10x3/uL (1.32-3.57); LYMPHOCYTES 12.3 % (15-50); MCH 27.7 pg (26.0-34.0); MCHC 31.2 g/dL (31.0-37.0); MCV 88.9 fL (80.0-100.0); MEAN PLATELET VOLUME 9.4 fL (7.4-10.4); MONOCYTES 11.7 % (2-11); NEUTROPHIL ABS# 5.42 10x3/uL (1.78-5.38); NEUTROPHILS 73.6 % (40-80); PLATELET COUNT 312 10x3/uL (130-400); RDW 18.8 % (11.5-14.5); WBC 7.4 10x3/uL (4.8-10.8)
[2020-06-21 11:24] LABS: ANION GAP 11.6 mmol/L (8-16); CALCIUM 9.4 mg/dL (8.5-10.1); CARBON DIOXIDE 31.5 mmol/L (21.0-32.0); CREATININE - SERUM 3.2 mg/dL (0.6-1.3); POTASSIUM - SERUM 5.1 mmol/L (3.5-5.1)
[2020-06-21 11:31] LABS: BILIRUBIN - TOTAL 1.37 mg/dL (0.2-1.3); PROTEIN - SERUM 6.3 g/dL (6.4-8.2)
[2020-06-21 11:39] LABS: ALBUMIN 3.2 g/dL (3.4-5.0)
--- NOTE | 2020-06-21 14:53 | NUR ---
22 GAUGE IV PLACED TO RIGHT FOREARM X 1 STICK. GOOD BLOOD RETURN, EASY FLUSH. TOLERATED IV PLACEMENT WELL. TAPE, DATED,AND SECURED WELL. NO DISTRESS.
--- NOTE | 2020-06-21 16:00 | NUR ---
HER FOR CONSULT. PATIENT SITTING UP IN BED WITH EYES OPEN, ANSWERING YES/NO QUESTIONS APPROPRIATELY. CALL LIGHT WITHIN REACH. PATIENT IS CURRENTLY 41, CONTROLLED AFIB ON TELEMETRY.
[2020-06-21 16:01] VITALS: BP 124/57
[2020-06-21 17:26] VITALS: BP 149/59; BMI 24.0
--- NOTE | 2020-06-21 18:09 | NUR ---
ASSISTED WITH MEAL SETUP. PATIENT WITH POOR APPETITE. JUICE PROVIDED. PATIENT HAS TOLERATED PD EXCHANGES WELL THIS SHIFT. NO DISTRESS. CALL LIGHT WITHIN REACH.
[2020-06-21 20:00] VITALS: BP 147/54
[2020-06-22 01:26] VITALS: BP 156/56
[2020-06-22 05:25] VITALS: BP 148/63
[2020-06-22 07:51] LABS: BASOPHILS 0.9 % (0-2); EOSINOPHILS 2.5 % (0-7); HEMATOCRIT 26.8 % (42.0-54.0); HEMOGLOBIN 8.5 g/dL (13.5-17.5); IMMATURE GRANULOCYTES 0.4 % (0-5); LYMPHOCYTE ABS# 0.82 10x3/uL (1.32-3.57); LYMPHOCYTES 15.5 % (15-50); MCH 27.7 pg (26.0-34.0); MCHC 31.7 g/dL (31.0-37.0); MCV 87.3 fL (80.0-100.0); MONOCYTES 11.7 % (2-11); NEUTROPHIL ABS# 3.65 10x3/uL (1.78-5.38); RBC 3.07 10x6/uL (4.20-6.10)
[2020-06-22 07:55] LABS: PLATELET COUNT 225 10x3/uL (130-400); WBC 5.3 10x3/uL (4.8-10.8)
[2020-06-22 07:56] LABS: APTT 30.9 SECONDS (22.8-39.4); INR 1.27 (0.85-1.17); PROTIME 14.7 SECONDS (11.6-15.0)
[2020-06-22 08:05] LABS: ANION GAP 8.8 mmol/L (8-16); CALCIUM 8.8 mg/dL (8.5-10.1); CARBON DIOXIDE 32.6 mmol/L (21.0-32.0); CREATININE - SERUM 2.8 mg/dL (0.6-1.3); POTASSIUM - SERUM 4.4 mmol/L (3.5-5.1)
[2020-06-22 09:14] VITALS: BP 173/69
[2020-06-22 13:24] VITALS: BP 162/63
[2020-06-22 14:04] VITALS: Ht 170.2 cm; Wt 69.6 kg
--- NOTE | 2020-06-22 16:40 | NUR ---
BILATERAL SCD PLACED ON PATIENT AND TURNED ON.
--- NOTE | 2020-06-22 20:57 | NUR ---
PT PD DONE AT THIS TIME. 1500 OUT, 1500IN 1.5%. PT A/O X4. RR E/U. TELE-45. VSS. BED LOW CALL LIGHT WITHIN REACH. WILL CONTINUE TO MONITOR.
[2020-06-23] VITALS: BP 139/65
[2020-06-23 04:00] VITALS: BP 131/55
[2020-06-23 08:40] VITALS: BP 151/60
--- NOTE | 2020-06-23 09:46 | NUR ---
NURSE GETS REPORT FROM RECOVERY.
--- NOTE | 2020-06-23 15:32 | NUR ---
OT NOTE: HOLD SECONDARY TO RECENT IV PORT PLACEMENT. GAVIN CARTER, OTR/L
[2020-06-23 15:51] VITALS: BP 125/45
--- NOTE | 2020-06-23 16:46 | MORECARE ---
CASE MANAGEMENT DISCHARGE SUMMARY PATIENT: LEESA BARBA UNIT: [id number] ADM DATE: 06/21/20 AGE: 79 : 40 SEX: M ROOM/BED: D.2134 AUTHOR: EMILY ROCK PHYSICIAN: REFERRING PHYSICIAN: MAGGIE RODRIGUEZ DO DATE OF SERVICE: 06/23/20 Case Management Discharge Planning Summary DCP REVIEW SUMMARY ANTICIPATED D/C DATE: EXPECTED LOS : CASE STATUS: DCP Initiated INITIAL REVIEW: 06/23/2020 INITIAL REVIEWER: Sharla Ignacio FINAL DISCHARGE DISPOSITION: : FINAL REVIEWER: FINAL REVIEW DATE: DCP Focus Questions & Answers DCP Evaluation QUESTION: ANSWER Patient and/or caregiver agree upon recommended discharge plan? : Yes Family / Caregiver's ability to cope with chronic illness: : a. Adequate (ability to meet patient's medical needs, ensures patient attends medical appts.) Patient's current cognitive status: : Alert Patient's ability to cope with chronic illness : d. No chronic illness Patient gives permission to discuss discharge plans with: (name, relationship and number) : Monica Barba - spouse - [phone] Alternate discharge plan (if recommended plan not agreed upon by patient and/or caregiver): : SNF - [facility] Does the patient have the ability to pay for or attain post discharge needs / services? : Yes Functional screen assessment: : New onset in difficulty speaking Family / Caregiver's ability to cope with chronic illness: : a. Adequate (ability to meet patient's medical needs, ensures patient attends medical appts.) Physical Status: : Speech impaired Physical Status: : Partial care dependence Physical Status: : Mobility impaired Is there a likelihood that the patient will require additional services to return to the preadmission environment? : No Living Arrangements: : Home with Spouse/Significant Other Partial Dependence, assistance required for: : Dressing Partial Dependence, assistance required for: : Bathing Partial Dependence, assistance required for: : Ambulation / Mobility Results of this evaluation have been discussed with: : Spouse Results of this evaluation have been discussed with: : Patient Baseline cognitive status: : Alert Medication Management: : Patient states the need for assistance with medication administration Planned post hospital services available for patient? : Yes Pharmacy name(s): : [facility] Planned post hospital services covered by insurance plan? : Yes Does Patient have transportation to get home and to follow-up medical appointments when discharged from the hospital? : Yes Would patient like to participate in any Care Coordination programs (if applicable): : Not applicable Does the patient have electricity at home? : Yes Does the patient have running water in their house? : Yes Equipment in use: : Walker - Rolling Equipment in use: : Walker - Rollator Equipment in use: : Shower Chair Mental health screen: : No mental health history Psychosocial status: : Adult with physical limitations Resources / Services in place: : Home health Contact information for resources in use: : [employer] [facility] DCP Re-evaluation QUESTION: ANSWER Would patient like to participate in any Care Coordination programs (if applicable): : Not applicable PATIENT: LEESA BARBA ENCOUNTER: [id number] MEDICAL RECORD#: [id number] ADMISSION DATE: 06/21/2020 DISCHARGE DATE: ATTENDING MD: ADAM: AGE: 79 MARITAL STATUS: U DC PLAN ID: [id number] FACILITY: [facility] PRINTED ON: 06/23/20 16:45 CT All edits/amendments must be made on the electronic document DICTATION DATE: 06/23/201644 COMMUNICATION INSTRUCTOR: МАРИЯ 06/23/201644 RPT#: [id number] DC DATE: STATUS: ADM IN [facility] [address] [place] [address] END OF REPORT
--- NOTE | 2020-06-23 16:57 | MORECARE ---
CASE MANAGEMENT DISCHARGE SUMMARY PATIENT: LEESA BARBA UNIT: [id number] ADM DATE: 06/21/20 AGE: 79 : 40 SEX: M ROOM/BED: D.2134 AUTHOR: PRANAV,DOC PHYSICIAN: REFERRING PHYSICIAN: MAGGIE RODRIGUEZ DO DATE OF SERVICE: 06/23/20 Case Management Discharge Planning Summary COMMENTS ENTERED DATE: 06/23/20 16:43 CT COMMENT TYPE: Discharge Planning REVIEWER: Sharla Ignacio CM met with patient and his spouse in the room to discuss discharge planning/needs. Spouse states that prior to coming to inpatient rehab he had been living with her at home. States he ambulated with a walker and she assisted him with bathing, dressing and med management. She states they also have had [facility] coming to give his B-12 and Procrit. I explained the SNF, [facility], and she states that is the one they would like to go to but the rehab speech therapist had told them that they were going back to [facility] and states "I want what's best for him." States she would like to see if they would take him downstairs first to finish his rehab prior to going to [facility] correction in [place]. I called inpatient rehab and a screen placed. I also faxed a face sheet to brooke [facility]field for [facility] in [place]. CM will continue to follow and assist with discharge planning/needs. DCP REVIEW SUMMARY ANTICIPATED D/C DATE: EXPECTED LOS : CASE STATUS: DCP Initiated INITIAL REVIEW: 06/23/2020 INITIAL REVIEWER: hSarla Ignacio FINAL DISCHARGE DISPOSITION: : FINAL REVIEWER: FINAL REVIEW DATE: DCP Focus Questions & Answers DCP Evaluation QUESTION: ANSWER Patient and/or caregiver agree upon recommended discharge plan? : Yes Family / Caregiver's ability to cope with chronic illness: : a. Adequate (ability to meet patient's medical needs, ensures patient attends medical appts.) Patient's current cognitive status: : Alert Patient's ability to cope with chronic illness : d. No chronic illness Patient gives permission to discuss discharge plans with: (name, relationship and number) : Monica Barba - spouse - [phone] Alternate discharge plan (if recommended plan not agreed upon by patient and/or caregiver): : SNF - [facility] Does the patient have the ability to pay for or attain post discharge needs / services? : Yes Functional screen assessment: : New onset in difficulty speaking Family / Caregiver's ability to cope with chronic illness: : a. Adequate (ability to meet patient's medical needs, ensures patient attends medical appts.) Physical Status: : Speech impaired Physical Status: : Partial care dependence Physical Status: : Mobility impaired Is there a likelihood that the patient will require additional services to return to the preadmission environment? : No Living Arrangements: : Home with Spouse/Significant Other Partial Dependence, assistance required for: : Dressing Partial Dependence, assistance required for: : Bathing Partial Dependence, assistance required for: : Ambulation / Mobility Results of this evaluation have been discussed with: : Spouse Results of this evaluation have been discussed with: : Patient Baseline cognitive status: : Alert Medication Management: : Patient states the need for assistance with medication administration Planned post hospital services available for patient? : Yes Pharmacy name(s): : [facility] Planned post hospital services covered by insurance plan? : Yes Does Patient have transportation to get home and to follow-up medical appointments when discharged from the hospital? : Yes Would patient like to participate in any Care Coordination programs (if applicable): : Not applicable Does the patient have electricity at home? : Yes Does the patient have running water in their house? : Yes Equipment in use: : Walker - Rolling Equipment in use: : Walker - Rollator Equipment in use: : Shower Chair Mental health screen: : No mental health history Psychosocial status: : Adult with physical limitations Resources / Services in place: : Home health Contact information for resources in use: : [facility] Re-evaluation QUESTION: ANSWER Would patient like to participate in any Care Coordination programs (if applicable): : Not applicable PATIENT: LEESA BARBA ENCOUNTER: [id number] MEDICAL RECORD#: [id number] ADMISSION DATE: 06/21/2020 DISCHARGE DATE: ATTENDING MD: ADAM: AGE: 79 MARITAL STATUS: U DC PLAN ID: [id number] FACILITY: [facility] PRINTED ON: 06/23/20 16:57 CT All edits/amendments must be made on the electronic document DICTATION DATE: 06/23/201656 CAST ASSOCIATE: МАРИЯ 06/23/201656 RPT#: [id number] DC DATE: STATUS: ADM IN [facility] [address] [place] [address] END OF REPORT
[2020-06-23 21:00] VITALS: BP 142/79
--- NOTE | 2020-06-23 21:10 | MORECARE ---
CASE MANAGEMENT DISCHARGE SUMMARY PATIENT: LEESA BARBA UNIT: [id number] ADM DATE: 06/21/20 AGE: 79 : 40 SEX: M ROOM/BED: D.2134 AUTHOR: PRANAV,DOC PHYSICIAN: REFERRING PHYSICIAN: MAGGIE RODRIGUEZ DO DATE OF SERVICE: 06/23/20 Case Management Discharge Planning Summary COMMENTS ENTERED DATE: 06/23/20 16:43 CT COMMENT TYPE: Discharge Planning REVIEWER: Sharla Ignacio CM met with patient and his spouse in the room to discuss discharge planning/needs. Spouse states that prior to coming to inpatient rehab he had been living with her at home. States he ambulated with a walker and she assisted him with bathing, dressing and med management. She states they also have had [facility] coming to give his B-12 and Procrit. I explained the SNF, [facility], and she states that is the one they would like to go to but the rehab speech therapist had told them that they were going back to [facility]patient rehab [facility] and states "I want what's best for him." States she would like to see if they would take him downstairs first to finish his rehab prior to going to [facility] snf in [place]. I called inpatient rehab and a screen placed. I also faxed a face sheet to brooke [facility]field for [facility] in [place]. CM will continue to follow and assist with discharge planning/needs. DCP REVIEW SUMMARY ANTICIPATED D/C DATE: EXPECTED LOS : CASE STATUS: DCP Initiated INITIAL REVIEW: 06/23/2020 INITIAL REVIEWER: Sharla Ignacio FINAL DISCHARGE DISPOSITION: : FINAL REVIEWER: FINAL REVIEW DATE: DCP Focus Questions & Answers DCP Evaluation QUESTION: ANSWER Patient and/or caregiver agree upon recommended discharge plan? : Yes Family / Caregiver's ability to cope with chronic illness: : a. Adequate (ability to meet patient's medical needs, ensures patient attends medical appts.) Patient's current cognitive status: : Alert Patient's ability to cope with chronic illness : d. No chronic illness Patient gives permission to discuss discharge plans with: (name, relationship and number) : Monica Barba - spouse - [phone] Alternate discharge plan (if recommended plan not agreed upon by patient and/or caregiver): : SNF - [facility] Does the patient have the ability to pay for or attain post discharge needs / services? : Yes Functional screen assessment: : New onset in difficulty speaking Family / Caregiver's ability to cope with chronic illness: : a. Adequate (ability to meet patient's medical needs, ensures patient attends medical appts.) Physical Status: : Speech impaired Physical Status: : Partial care dependence Physical Status: : Mobility impaired Is there a likelihood that the patient will require additional services to return to the preadmission environment? : No Living Arrangements: : Home with Spouse/Significant Other Partial Dependence, assistance required for: : Dressing Partial Dependence, assistance required for: : Bathing Partial Dependence, assistance required for: : Ambulation / Mobility Results of this evaluation have been discussed with: : Spouse Results of this evaluation have been discussed with: : Patient Baseline cognitive status: : Alert Medication Management: : Patient states the need for assistance with medication administration Planned post hospital services available for patient? : Yes Pharmacy name(s): : [facility] Planned post hospital services covered by insurance plan? : Yes Does Patient have transportation to get home and to follow-up medical appointments when discharged from the hospital? : Yes Would patient like to participate in any Care Coordination programs (if applicable): : Not applicable Does the patient have electricity at home? : Yes Does the patient have running water in their house? : Yes Equipment in use: : Walker - Rolling Equipment in use: : Walker - Rollator Equipment in use: : Shower Chair Mental health screen: : No mental health history Psychosocial status: : Adult with physical limitations Resources / Services in place: : Home health Contact information for resources in use: : [facility] Re-evaluation QUESTION: ANSWER Would patient like to participate in any Care Coordination programs (if applicable): : Not applicable PATIENT: LEESA BARBA ENCOUNTER: [id number] MEDICAL RECORD#: [id number] ADMISSION DATE: 06/21/2020 DISCHARGE DATE: ATTENDING MD: ADAM: AGE: 79 MARITAL STATUS: U DC PLAN ID: [id number] FACILITY: PRINTED ON: 06/23/20 21:10 CT All edits/amendments must be made on the electronic document DICTATION DATE: 06/23/202108 ASSISTANT PARALEGAL: МАРИЯ 06/23/202108 RPT#: [id number] DC DATE: STATUS: ADM IN [address] [place] [address] END OF REPORT
[2020-06-24] VITALS: BP 149/101
--- NOTE | 2020-06-24 00:15 | NUR ---
I have reviewed this patient and I concur with the Shift Assessment completed by the Licensed Practical Nurse today this shift.
[2020-06-24 04:00] VITALS: BP 108/55
[2020-06-24 07:38] VITALS: BP 141/80
[2020-06-24 12:13] VITALS: BP 123/46
--- NOTE | 2020-06-24 13:58 | NUR ---
Nutrition Follow-up: POD 1 hemosplit placement. HD TTS. Ate ~50% of breakfast this AM. Diet: Renal ADA No new wt; last wt: 153.4# (06/22) Labs noted (06/22): K+ 4.4, BUN 27, Cre 2.8, GFR 23, Glu 111 Meds noted: Protonix, Bumex, Carafate, MagOx -Encourage PO intake and honor food preferences within diet restrictions. -+Nepro with meals. -Need new wt. -RD will follow up within 5 days.
[2020-06-24 16:08] VITALS: BP 132/51
--- NOTE | 2020-06-24 16:18 | NUR ---
OT NOTE: PT COMPLETED BED MOB WITH MIN A. PT COMPLETED SUPINE TO SIT WITH MIN A. PT COMPLETED SIT TO STAND WITH MIN A. PT COMPLETED SIDE STEPS WITH MIN A. PT COMPLETED BUE AAROM TOLERATED. [id number] OMERO ROBERTSON COTA
--- NOTE | 2020-06-24 19:30 | NUR ---
PT IN BED, AAO X 3, RESP EVEN AND UNLABORED, NO DISTRESS NOTED, CL IN REACH,SR UP X 2.
--- NOTE | 2020-06-24 20:53 | OP ---
PATIENT NAME: LEESA BARBA MEDICAL RECORD: [id number] :40 LOCATION:D. D.2134 ADMISSION DATE:06/21/20 SURGEON: JOCELYN FLORES MD DATE OF OPERATION: 06/23/2020 REFERRED BY: Loli Rodriguez DO PREOPERATIVE DIAGNOSES: End-stage renal disease and dependence on dialysis and acute cerebrovascular accident. POSTOPERATIVE DIAGNOSES: End-stage renal disease and dependence on dialysis and acute cerebrovascular accident. OPERATION PERFORMED: Implantation of a 19-cm HemoSplit tunneled dialysis catheter via the right internal jugular vein with continuous ultrasound guidance and fluoroscopic control. SURGEON: Jocelyn Flores MD ANESTHESIA: General with LMA per ELECTRIC TRAIN DRIVER PREOPERATIVE NOTE: Mr. 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 He has done peritoneal dialysis, but now will be going to a fdc and so we will have to go to hemodialysis and needs access. He was brought to the OR to place a tunneled catheter. DESCRIPTION OF PROCEDURE: Under general anesthesia in supine position, the patient was prepped and draped in sterile manner. I located the right internal jugular vein with duplex ultrasound. The vein was normal sonographically, it was fully compressible and there was no evidence of intravascular thrombosis or sclerosis. A small incision was made at the base of the neck and a micropuncture needle and guidewire was inserted into the internal jugular vein with continuous ultrasound guidance and image documentation. A catheter and wire exchange was performed and then serial dilators were passed over an 0.035 guidewire, which had been placed in the inferior vena cava. A dilator peel-away sheath was inserted. The 19 cm HemoSplit catheter was then inserted through a small incision beneath the clavicle and pulled through a subcutaneous tunnel to the primary incision. The wire was then inserted through the sheath and the sheath removed. Fluoroscopy revealed very nice positioning of the catheter without evidence of any complications, kinks, etc. Both lumens of the catheter were aspirated and returned blood easily. They were then flushed with saline and then heparin locked, clamped and capped. The cervical incision was closed with interrupted inverted 3-0 Vicryl and Dermabond glue. It was dressed with Maxorb AG, and Tegaderm with Cavilon skin prep. The entry site was dressed with a Biopatch and a standard CVL adhesive dressing. At this point, the patient was awakened and taken to the recovery room. The patient has been on anticoagulant medications up until his last dose of Eliquis on the a.m. of the , he is continued on Plavix and aspirin and during the procedure today he did not have any unusual bleeding at all, but because of this and knowing he would be going back on Eliquis on postop day #1, I did pack some fibrillar hemostatic oculi cellulose through the entry site into the subcutaneous tunnel and also infiltrated the tissue surrounding the tunnel with 0.25% Marcaine with epinephrine. OPERATIVE REPORT [id number] LEESA BARBA Blood loss during the operation was 2 cc, unreplaced. Sponges, instruments and needles were accounted for. No drain used and no surgical specimen submitted. TRANSINT:[id number] Voice Confirmation ID: [id number] DOCUMENT ID: [id number] JOCELYN FLORES MD at 2053 CC: LOLI RODRIGUEZ DO [id number] DICTATION DATE: 06/24/20 1025 DOG BOARDER: 06/24/20 1147 ADM IN [facility] [address] [id number]
[2020-06-24 21:00] VITALS: BP 147/88
[2020-06-25] VITALS: BP 145/57
[2020-06-25 04:00] VITALS: BP 143/80
--- NOTE | 2020-06-25 04:09 | NUR ---
I have reviewed this patient and I concur with the Shift Assessment completed by the Licensed Practical Nurse today this shift.
--- NOTE | 2020-06-25 07:00 | NUR ---
Lying in bed, awake/alert/oriented, difficult to understand with expressive aphasia, T/R self ad suellen, cont of B/B with use of urinal and incont pads, pericare provided with daily bath and PRN, denies pain/other discomfort at this time, call light/phone/water within reach, no s/s of acute distress observed.
[2020-06-25 08:40] VITALS: BP 137/55
--- NOTE | 2020-06-25 14:26 | NUR ---
PATIENT IS ACCEPTED TO REHAB RM 1113A. I HAVE CALLED SERGE YOUNG RN CM AND OMERO ARREAGA RNMOSAIC TILE MAKER AND ADVISED THEM OF THIS. THANK YOU FOR THIS REFERRAL. KEI BHATT RN CLINICAL LIAISON, INPATIENT REHAB.
--- NOTE | 2020-06-25 16:16 | NUR ---
Called report to ALEXI Faria
--- NOTE | 2020-06-25 18:00 | NUR ---
TRANSFERRED TO REHAB IN STABLE CONDITION VIA W/C ACCOMPANIED BY HOSPITAL STAFF AND FAMILY MEMBER, NO S/S OF ACUTE DISTRESS OBSERVED.
--- NOTE | 2020-06-25 19:37 | MORECARE ---
CASE MANAGEMENT DISCHARGE SUMMARY PATIENT: LEESA BARBA UNIT: [id number] ADM DATE: 06/21/20 AGE: 79 : 40 SEX: M ROOM/BED: D.2134 AUTHOR: PRANAV,DOC PHYSICIAN: REFERRING PHYSICIAN: MAGGIE RODRIGUEZ DO DATE OF SERVICE: 06/25/20 Case Management Discharge Planning Summary COMMENTS ENTERED DATE: 06/23/20 16:43 CT COMMENT TYPE: Discharge Planning REVIEWER: Sharla Ignacio CM met with patient and his spouse in the room to discuss discharge planning/needs. Spouse states that prior to coming to inpatient rehab he had been living with her at home. States he ambulated with a walker and she assisted him with bathing, dressing and med management. She states they also have had [facility] coming to give his B-12 and Procrit. I explained the SNF, [facility], and she states that is the one they would like to go to but the rehab speech therapist had told them that they were going back to [facility]patient rehab [facility] and states "I want what's best for him." States she would like to see if they would take him downstairs first to finish his rehab prior to going to [facility] in [place]. I called inpatient rehab and a screen placed. I also faxed a face sheet to brooke Mans[facility] for [facility] in [place]. CM will continue to follow and assist with discharge planning/needs. DCP REVIEW SUMMARY ANTICIPATED D/C DATE: EXPECTED LOS : CASE STATUS: DCP Initiated INITIAL REVIEW: 06/23/2020 INITIAL REVIEWER: Sharla Ignacio FINAL DISCHARGE DISPOSITION: : FINAL REVIEWER: FINAL REVIEW DATE: DCP Focus Questions & Answers DCP Evaluation QUESTION: ANSWER Patient and/or caregiver agree upon recommended discharge plan? : Yes Family / Caregiver's ability to cope with chronic illness: : a. Adequate (ability to meet patient's medical needs, ensures patient attends medical appts.) Patient's current cognitive status: : Alert Patient's ability to cope with chronic illness : d. No chronic illness Patient gives permission to discuss discharge plans with: (name, relationship and number) : Monica Barba - spouse - [phone] Alternate discharge plan (if recommended plan not agreed upon by patient and/or caregiver): : SNF - [facility] Does the patient have the ability to pay for or attain post discharge needs / services? : Yes Functional screen assessment: : New onset in difficulty speaking Family / Caregiver's ability to cope with chronic illness: : a. Adequate (ability to meet patient's medical needs, ensures patient attends medical appts.) Physical Status: : Speech impaired Physical Status: : Partial care dependence Physical Status: : Mobility impaired Is there a likelihood that the patient will require additional services to return to the preadmission environment? : No Living Arrangements: : Home with Spouse/Significant Other Partial Dependence, assistance required for: : Dressing Partial Dependence, assistance required for: : Bathing Partial Dependence, assistance required for: : Ambulation / Mobility Results of this evaluation have been discussed with: : Spouse Results of this evaluation have been discussed with: : Patient Baseline cognitive status: : Alert Medication Management: : Patient states the need for assistance with medication administration Planned post hospital services available for patient? : Yes Pharmacy name(s): : [facility] Planned post hospital services covered by insurance plan? : Yes Does Patient have transportation to get home and to follow-up medical appointments when discharged from the hospital? : Yes Would patient like to participate in any Care Coordination programs (if applicable): : Not applicable Does the patient have electricity at home? : Yes Does the patient have running water in their house? : Yes Equipment in use: : Walker - Rolling Equipment in use: : Walker - Rollator Equipment in use: : Shower Chair Mental health screen: : No mental health history Psychosocial status: : Adult with physical limitations Resources / Services in place: : Home health Contact information for resources in use: : [facility] [place] Re-evaluation QUESTION: ANSWER Would patient like to participate in any Care Coordination programs (if applicable): : Not applicable PATIENT: LEESA BARBA ENCOUNTER: [id number] MEDICAL RECORD#: [id number] ADMISSION DATE: 06/21/2020 DISCHARGE DATE: 06/25/2020 ATTENDING MD: ADAM: AGE: 79 MARITAL STATUS: U DC PLAN ID: [id number] FACILITY: [facility] PRINTED ON: 06/25/20 19:37 CT All edits/amendments must be made on the electronic document DICTATION DATE: 06/25/201936 RESTAURANT WORKER: МАРИЯ 06/25/201936 RPT#: [id number] [place] DATE:06/25/20 STATUS: DIS IN [facility] [address] [place] [address] END OF REPORT
[2020-06-26 10:12] LABS: HEPATITIS C ANTIBODY <0.1 S/CO RAT (0.0-0.9)
--- NOTE | 2020-06-29 08:45 | MORECARE ---
CASE MANAGEMENT DISCHARGE SUMMARY PATIENT: LEESA BARBA UNIT: [id number] ADM DATE: 06/21/20 AGE: 80 : 40 SEX: M ROOM/BED: D.2134 AUTHOR: PRANAV,DOC PHYSICIAN: REFERRING PHYSICIAN: MAGGIE RODRIGUEZ DO DATE OF SERVICE: 06/29/20 Case Management Discharge Planning Summary COMMENTS ENTERED DATE: 06/23/20 16:43 CT COMMENT TYPE: Discharge Planning REVIEWER: Sharla Ignacio CM met with patient and his spouse in the room to discuss discharge planning/needs. Spouse states that prior to coming to inpatient rehab he had been living with her at home. States he ambulated with a walker and she assisted him with bathing, dressing and med management. She states they also have had [facility] coming to give his B-12 and Procrit. I explained the SNF, [facility], and she states that is the one they would like to go to but the rehab speech therapist had told them that they were going back to Inpatient rehab first and states "I want what's best for him." States she would like to see if they would take him downstairs first to finish his rehab prior to going to [facility] in [place]. I called inpatient rehab and a screen placed. I also faxed a face sheet to brooke Mans[place] for [facility] in [place]. CM will continue to follow and assist with discharge planning/needs. DCP REVIEW SUMMARY ANTICIPATED D/C DATE: EXPECTED LOS : CASE STATUS: DCP Initiated INITIAL REVIEW: 06/23/2020 INITIAL REVIEWER: Sharla Ignacio FINAL DISCHARGE DISPOSITION: : FINAL REVIEWER: FINAL REVIEW DATE: DCP Focus Questions & Answers DCP Evaluation QUESTION: ANSWER Patient and/or caregiver agree upon recommended discharge plan? : Yes Family / Caregiver's ability to cope with chronic illness: : a. Adequate (ability to meet patient's medical needs, ensures patient attends medical appts.) Patient's current cognitive status: : Alert Patient's ability to cope with chronic illness : d. No chronic illness Patient gives permission to discuss discharge plans with: (name, relationship and number) : Monica Barba - spouse - [phone] Alternate discharge plan (if recommended plan not agreed upon by patient and/or caregiver): : SNF - [facility] Does the patient have the ability to pay for or attain post discharge needs / services? : Yes Functional screen assessment: : New onset in difficulty speaking Family / Caregiver's ability to cope with chronic illness: : a. Adequate (ability to meet patient's medical needs, ensures patient attends medical appts.) Physical Status: : Speech impaired Physical Status: : Partial care dependence Physical Status: : Mobility impaired Is there a likelihood that the patient will require additional services to return to the preadmission environment? : No Living Arrangements: : Home with Spouse/Significant Other Partial Dependence, assistance required for: : Dressing Partial Dependence, assistance required for: : Bathing Partial Dependence, assistance required for: : Ambulation / Mobility Results of this evaluation have been discussed with: : Spouse Results of this evaluation have been discussed with: : Patient Baseline cognitive status: : Alert Medication Management: : Patient states the need for assistance with medication administration Planned post hospital services available for patient? : Yes Pharmacy name(s): : [facility] Planned post hospital services covered by insurance plan? : Yes Does Patient have transportation to get home and to follow-up medical appointments when discharged from the hospital? : Yes Would patient like to participate in any Care Coordination programs (if applicable): : Not applicable Does the patient have electricity at home? : Yes Does the patient have running water in their house? : Yes Equipment in use: : Walker - Rolling Equipment in use: : Walker - Rollator Equipment in use: : Shower Chair Mental health screen: : No mental health history Psychosocial status: : Adult with physical limitations Resources / Services in place: : Home health Contact information for resources in use: : [facility] [place] Re-evaluation QUESTION: ANSWER Would patient like to participate in any Care Coordination programs (if applicable): : Not applicable PATIENT: LEESA BARBA ENCOUNTER: [id number] MEDICAL RECORD#: [id number] ADMISSION DATE: 06/21/2020 DISCHARGE DATE: 06/25/2020 ATTENDING MD: ADAM: AGE: 80 MARITAL STATUS: U DC PLAN ID: [id number] FACILITY: [facility] PRINTED ON: 06/29/20 8:45 CT All edits/amendments must be made on the electronic document DICTATION DATE: 06/29/20844 STERILE TECH: МАРИЯ 06/29/20844 RPT#: [id number] DC DATE:06/25/20 STATUS: DIS IN [facility] [address] [place] [address] END OF REPORT
== END 2020-06-25 18:00 | DRG 673 ==
LOC: D.M2 06:24
PROVIDERS: Surgery; ADMIT Internal Medicine; ATTEND Internal Medicine
PROC: 05HM33Z Insertion of Infusion Device into Right Internal Jugular Vein, Percutaneous Approach (ICD-10-PCS; 2020-06-23)
PROC: B5131ZA Fluoroscopy of Right Jugular Veins using Low Osmolar Contrast, Guidance (ICD-10-PCS; 2020-06-23)
PROC: 0JH63XZ Insertion of Tunneled Vascular Access Device into Chest Subcutaneous Tissue and Fascia, Percutaneous Approach (ICD-10-PCS; principal; 2020-06-23 08:00)
DX: I12.0 Hypertensive chronic kidney disease with stage 5 chronic kidney disease or end stage renal disease (principal); N18.6 End stage renal disease; Z99.2 Dependence on renal dialysis; I69.391 Dysphagia following cerebral infarction; I69.322 Dysarthria following cerebral infarction; G72.89 Other specified myopathies; I48.0 Paroxysmal atrial fibrillation

== ENCOUNTER 2020-06-25 15:46 | Inpatient (IN) | payer MEDICARE, OTHER ==
[~2020-06-25] VITALS: Ht 170.2 cm; Wt 56.5 kg
[~2020-06-25 15:46] MED LIST changes: -PLAVIX75 MG; -PROAIR HFA8.5 G1; +PROAIR HFA8.5 G1 INH
--- NOTE | 2020-06-25 17:50 | NUR ---
RECIEVED FROM ACUTE CARE TO ROOM 1113A/WC;ORIENTED TO ROOM AND SURROUNDINGS.CL IN REACH. AT BEDSIDE.
[2020-06-25 18:31] VITALS: BP 146/47
[2020-06-25 19:43] VITALS: BP 146/45; BMI 23.7
[2020-06-25 20:23] VITALS: BP 146/47
--- NOTE | 2020-06-25 21:26 | NUR ---
AWAKE AND ALERT. APHASIC. CAN SAY A FEW GARBLED WORDS. RESPIRATIONS UNLABORED. HEMISPLIT CATHETER IN PLACE TO RIGHT UPPER CHEST. SALINE LOCK INTACT TO RIGHT FOREARM. TELEMETRY MONIOR ON AND TRACING BRADYCARDIA WITH CONTROLLED ATRIAL FIBRILLATION. NO ACUTE DISTRESS NOTED. CALL LIGHT IN REACH.
[2020-06-26 00:38] VITALS: BP 144/53
--- NOTE | 2020-06-26 05:02 | NUR ---
QUIET HOURS. NO ACUTE CHANGES IN CONDITION THIS SHIFT. RESTING IN BED WITH NO DISTRESS NOTED. CALL LIGHT IN REACH.
[2020-06-26 05:55] VITALS: BP 137/65
[2020-06-26 06:20] LABS: BASOPHILS 0.6 % (0-2); EOSINOPHILS 1.5 % (0-7); HEMATOCRIT 24.5 % (42.0-54.0); HEMOGLOBIN 8.4 g/dL (13.5-17.5); LYMPHOCYTES 8.3 % (15-50); MCH 29.3 pg (26.0-34.0); MCHC 34.2 g/dL (31.0-37.0); MCV 85.6 fL (80.0-100.0); MEAN PLATELET VOLUME 7.4 fL (7.4-10.4); NEUTROPHILS 80.6 % (40-80); PLATELET COUNT 193 10x3/uL (130-400); RBC 2.87 10x6/uL (4.20-6.10); RDW 22.3 % (11.5-14.5); WBC 7.7 10x3/uL (4.8-10.8)
[2020-06-26 06:37] LABS: ANION GAP 9.2 mmol/L (8-16); CALCIUM 8.5 mg/dL (8.5-10.1); CARBON DIOXIDE 31.1 mmol/L (21.0-32.0); POTASSIUM - SERUM 3.3 mmol/L (3.5-5.1)
[2020-06-26 12:30] VITALS: BP 144/47
--- NOTE | 2020-06-26 13:52 | NUR ---
SITTING IN WC QUIETLY WATCHING TV. SPEECH GARBLED SEVERLY. DOES FOLLOW SIMPLE ONE STEP COMMANDS AND IS PLEASANT. DENIES PAIN. HD ACCESS TO RT CHEST HAS DRESSING COVERING IT. HE STILL HAS PD ACCESS. HIS BUE AND BLE ARE BRUISED. HE CAN SWALLOW MEDS IN APPLE SAUCE. VISITED THIS MORNING. CALL LIGHT IN REACH. HE IS IN LINE OF SITE OF NURSES STATION AND HAS PRIVATE ROOM CLOSE TO NURSES STATION.
[2020-06-26 14:49] VITALS: Ht 170.2 cm; Wt 56.5 kg
[2020-06-26 18:15] VITALS: BP 140/49
--- NOTE | 2020-06-26 20:00 | NUR ---
PATIENT RECEIVED LAYING IN BED. ASSESSMENT & VITAL SIGNS DONE. PATIENT ABLE TO ANSWER QUESTION YES OR NO. PATIENT REACHED DOWN & TRIED TO PULL SIDE RAIL UP. THIS NURSE DID IT FOR PATIENT. PATIENT POINTED AT URINAL. THIS NURSE PLACED IT ON HIS SIDE RAIL. BED LOW. CALL LIGHT WITHIN REACH. ALARM ON. WILL CONTINUE TO MONITOR.
[2020-06-26 20:24] VITALS: BP 143/50
--- NOTE | 2020-06-27 00:45 | NUR ---
PATIENT VITAL SIGNS TO BE TAKEN. PATIENT LIFTED HIS LEFT ARM. PATIENT SIGNS SAID RESERVE LEFT ARM. PATIENT SIGNS WRONG & WAS CORRECTED TO RESERVE RIGHT RIGHT ON DOOR & HEAD OF BED. PATIENT ABLE TO SPEAK WORDS & HIS NEEDS BE KNOWN. BED LOW. ALARM ON. CALL LIGHT WITHIN REACH. WILL CONTINUE TO MONITOR.
[2020-06-27 00:50] VITALS: BP 150/54
--- NOTE | 2020-06-27 02:00 | NUR ---
I have reviewed this patient and I concur with the Shift Assessment completed by the Licensed Practical Nurse today this shift.
[2020-06-27 05:51] VITALS: BP 145/55
--- NOTE | 2020-06-27 08:00 | NUR ---
PT RESTING IN BED WITH EYES OPEN CALL LIGHT IN REACH WILL MONITER
--- NOTE | 2020-06-27 11:45 | NUR ---
PT TAKEN TO DIALYSIS VIA WHEELCHAIR
--- NOTE | 2020-06-27 17:49 | NUR ---
PT RESTING IN BED WITH EYES OPEN CALL LIGHT IN REACH WILL MONITER
[2020-06-27 18:25] VITALS: BP 143/60
--- NOTE | 2020-06-27 19:13 | NUR ---
PATIENT RECEIVED LAYING IN BED. ASSESSMENT & VITAL SIGNS DONE. NO C/O PAIN OR DISTRESS. ALARM ON. BED LOW. URINAL, BEDSIDE TABLE, & CALL LIGHT WITHIN REACH. WILL CONTINUE TO MONITOR.
[2020-06-27 19:55] VITALS: BP 150/91
--- NOTE | 2020-06-27 20:00 | NUR ---
PATIENT RECEIVED LAYING IN BED. ASSESSMENT & VITAL SIGNS DONE. NO C/O PAIN OR DISTRESS. PATIENT ABLE TO VOICE NEEDS. BED LOW. ALARM ON. CALL LIGHT WITHIN REACH. WILL CONTINUE TO MONITOR.
[2020-06-28] VITALS: BP 116/37
--- NOTE | 2020-06-28 02:00 | NUR ---
I have reviewed this patient and I concur with the Shift Assessment completed by the Licensed Practical Nurse today this shift.
--- NOTE | 2020-06-28 03:34 | NUR ---
PATIENT EYES CLOSED. RESPIRATIONS !8 & EVEN. 400 CC OF YELLOW COLOR URINE EMPTIED. BED LOW. CALL LIGHT, URINAL, & BEDSIDE TABLE WITHIN REACH. PATIENT ABLE TO TALK IN WHISPER. BED LOW. CALL LIGHT WITHIN REACH. WILL CONTINUE TO MONITOR.
[2020-06-28 06:21] VITALS: BP 146/53
[2020-06-28 07:54] VITALS: BP 146/53
--- NOTE | 2020-06-28 08:00 | NUR ---
PT RESTING IN BED WITH EYES OPEN CALL LIGHT IN REACH NO PROBLEMS WILL MONITER
[2020-06-28 12:00] VITALS: BP 140/50
--- NOTE | 2020-06-28 17:59 | NUR ---
PT RESTING IN BED WITH EYES OPEN CALL LIGHT IN REACH NO PROBLEMS WILL MONITER
--- NOTE | 2020-06-28 19:13 | NUR ---
PATIENT RECEIVED LAYING IN BED. ASSESSMENT & VITAL SIGNS DONE. BEDSIDE TABLE, URINAL, & CALL LIGHT WITHIN REACH. WILL CONITNUE TO MONITOR.
[2020-06-28 19:45] VITALS: BP 134/57
--- NOTE | 2020-06-28 23:39 | NUR ---
I have reviewed this patient and I concur with the Shift Assessment completed by the Licensed Practical Nurse today this shift.
[2020-06-29 00:40] VITALS: BP 159/69
--- NOTE | 2020-06-29 03:41 | NUR ---
[id number] BED BATH GIVEN. PATIENT LINENS CHANGED. TELEMETRY ONGOING. BODY WASHED & LOTIONED. HEELS BRIDGED & INTACT. BRUISES ON LEGS & ARMS. BED LOWERED ALARM OPN. CALL LIGHT WITHIN REACH. WILL CONTINUE TO MONITOR.
[2020-06-29 06:14] VITALS: BP 151/53
[2020-06-29 07:30] LABS: BASOPHILS 1.3 % (0-2); EOSINOPHILS 1.6 % (0-7); HEMATOCRIT 26.6 % (42.0-54.0); HEMOGLOBIN 9.1 g/dL (13.5-17.5); LYMPHOCYTES 11.5 % (15-50); MCH 29.6 pg (26.0-34.0); MCHC 34.2 g/dL (31.0-37.0); MCV 86.5 fL (80.0-100.0); MEAN PLATELET VOLUME 7.7 fL (7.4-10.4); MONOCYTES 9.1 % (2-11); NEUTROPHILS 76.5 % (40-80); PLATELET COUNT 177 10x3/uL (130-400); RBC 3.08 10x6/uL (4.20-6.10); RDW 22.9 % (11.5-14.5); WBC 7.2 10x3/uL (4.8-10.8)
--- NOTE | 2020-06-29 07:41 | NUR ---
HE TOOK HIS MEDICAITON CRUSHED UP IN APPLESAUCE. HE HAS A LOW VOICE, I CAN NOT UNDERSTAND EVERYTHING HE SAYS. HE DID NOT EAT VERY MUCH BREAKFAST. THE CALL LIGHT IS WITHIN REACH AND THE BED ALARM IS ON.
[2020-06-29 07:43] LABS: ANION GAP 10.8 mmol/L (8-16); CALCIUM 8.7 mg/dL (8.5-10.1); CARBON DIOXIDE 26.5 mmol/L (21.0-32.0); POTASSIUM - SERUM 4.3 mmol/L (3.5-5.1)
[2020-06-29 12:29] VITALS: BP 153/66
[2020-06-29 18:14] VITALS: BP 138/51
--- NOTE | 2020-06-29 19:05 | NUR ---
AWAKE AND RESTING IN BED WITH RESPIRATIONS UNLABORED. NOTED APHASIC. NODS HEAD YES OR NO TO QUESTIONS. SALINE LOCK IN RIGHT ARM INTACT WITH NO SIGNS OF INFILTRATION. PD CATHETER NOT IN USE IN PLACE TO ABDOMEN. HEMISPLIT IN PLACE TO RIGHT UPPER CHEST. DIRECTOR OF SOCIAL MEDIA MARKETING ON WITH SINUS COLEEN NOTED. NO ACUTE DISTRESS NOTED. CALL LIGHT IN REACH.
[2020-06-30 00:08] VITALS: BP 141/48
--- NOTE | 2020-06-30 00:13 | NUR ---
VITAL SIGNS TAKEN. AFEBRILE. RESTING IN BED WITH NO DISTRESS NOTED.
--- NOTE | 2020-06-30 02:19 | NUR ---
CONTINUES TO SLEEP WITH NO DISTRESS NOTED.
--- NOTE | 2020-06-30 05:02 | NUR ---
QUIET HOURS. NO ACUTE CHANGES IN CONDITION THIS SHIFT. RESTING IN BED WITH NO DISTRESS NOTED. CALL LIGHT IN REACH.
[2020-06-30 06:18] VITALS: BP 146/49
--- NOTE | 2020-06-30 07:51 | NUR ---
HE IS SETTING UP IN THE BED FOR BREAKFAST. TOOK HIS MEDS CRUSHED. THE CALL LIGHT IS WITHIN REACH AND THE BED ALARM IS ON.
[2020-06-30 11:50] VITALS: BP 141/49
--- NOTE | 2020-06-30 12:30 | NUR ---
Nutrition Re-Assessment ESRD on HD TTS currently. Diet: Renal Mech Soft Chopped meats PO intake: ~27% average x last 9 meals. He ate 75% of breakfast tray. He is difficult to understand but he did indicate that he is drinking Nepro with meals. Noted 2 empty bottles and 1 unopened bottle of nepro on bedside table. Last BM: 06/20/20 Wt: 149# (06/29/20) Meds noted: retacrit, bumex, kdur, magox Labs noted: Na 132(L), BUN 26(H), Cr 3.0(H), GFR 21(L), Glu 72(L) Estimated nutrition needs: 2060-2400cal (30-35kcal/kg Act), 68-90gms protein (1-1.3gms/kg), 1000mL + UOP (or per MD) Nutrition diagnosis: -Altered nutrition related lab values r/t ESRD AEB BUN 26, Cr 3.0, GFR 21. 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 Nutrition goals: -PO intake >/=75% meals -Dry weight stable DHS -Maintain skin integrity Recommendations/Interventions: -Due to history of low K, recommend liberating diet order to Low Sodium. -Recommend continue oral nutrition supplements. -Will continue to honor food preferences within diet restrictions. -Encouraged PO intake. -RD will follow-up within 7 days.
--- NOTE | 2020-06-30 12:50 | NUR ---
GONE TO DIALYSIS VIA BED.
--- NOTE | 2020-06-30 13:46 | NUR ---
PATIENT ADMITTS TO REHAB FROM ACUTE FLOOR. AT THIS TIME HIS DISCHARGE PLAN IS UNCERTAIN. WILL CONTINUE TO FOLLOW WITH PATIENT.WILL SPEAK WITH AND WILL ASSIST WITH HER DC PLANS.
--- NOTE | 2020-06-30 17:01 | NUR ---
BACK FROM DIALYSIS.
[2020-06-30 20:16] VITALS: BP 152/53
--- NOTE | 2020-06-30 20:28 | NUR ---
AWAKE AND ALERT. APHASIC RESTING IN BED WITH NO DISTRESS NOTED. CALL LIGHT IN REACH.
[2020-07-01 00:19] VITALS: BP 140/53
--- NOTE | 2020-07-01 05:22 | NUR ---
QUIET HOURS. NO ACUTE CHANGES IN CONDITION THIS SHIFT. RESTING IN BED WITH NO DISTRESS NOTED.
[2020-07-01 06:07] VITALS: BP 138/53
[2020-07-01 07:15] LABS: EOSINOPHILS 1.4 % (0-7); HEMATOCRIT 25.3 % (42.0-54.0); HEMOGLOBIN 8.7 g/dL (13.5-17.5); LYMPHOCYTES 12.1 % (15-50); MCH 29.7 pg (26.0-34.0); MCHC 34.4 g/dL (31.0-37.0); MCV 86.4 fL (80.0-100.0); MEAN PLATELET VOLUME 7.7 fL (7.4-10.4); MONOCYTES 11.3 % (2-11); NEUTROPHILS 74.2 % (40-80); PLATELET COUNT 153 10x3/uL (130-400); RBC 2.93 10x6/uL (4.20-6.10); RDW 22.3 % (11.5-14.5); WBC 6.4 10x3/uL (4.8-10.8)
[2020-07-01 07:37] LABS: CALCIUM 8.5 mg/dL (8.5-10.1); CARBON DIOXIDE 28.3 mmol/L (21.0-32.0); CREATININE - SERUM 2.5 mg/dL (0.6-1.3); POTASSIUM - SERUM 4.3 mmol/L (3.5-5.1)
--- NOTE | 2020-07-01 08:00 | NUR ---
PATIENT IS APHASIC. SET UP BREAKFAST TRAY FOR PATIENT. PATIENT SITTING UP IN BED TO EAT. BED ALARM ON. CALL LIGHT WITHIN REACH. VOICES NO NEEDS AT THIS TIME. WILL CONTINUE WITH PLAN OF CARE
--- NOTE | 2020-07-01 10:50 | NUR ---
PATIENT IN REHAB ROOM. WORKING WITH PHYSICAL THERAPIST. DENIES ANY PAIN/DISC AT THIS TIME.
--- NOTE | 2020-07-01 12:00 | NUR ---
I have reviewed this patient and I concur with the Shift Assessment completed by the Licensed Practical Nurse today this shift.
[2020-07-01 12:07] VITALS: BP 123/45
--- NOTE | 2020-07-01 13:33 | NUR ---
CARE TEAM MEETING: PATIENT SPOUSE ATTENDED THE MEETING. HER QUESTIONS AND CONCERNS WERE ADDRESSED. SHE WOULD LIKE A REFERAL SENT TO [facility] FOR POSSIBLE ADMISSION. PATIENT TENATIVE DC DATE IS 07/09/20. REFERRAL WILL BE MADE PER SPOUSE REQUEST. WILL CONTINUE TO FOLLOW WITH PATIENT.
--- NOTE | 2020-07-01 14:03 | NUR ---
Nutrition Follow-up: Discussed in Rehab CM meeting today. Patient with poor PO intake. Noted patient with previously low K (currently WNL), and previously low PO4. Patient gets HD 3 times weekly. Will liberate diet to Low Sodium to remove the potassium and phosphorus dietary restrictions. Hopefully this slightly liberated diet will encourage better PO intake in patient. Also adjusted oral nutrition supplement from Nepro to Ensure. RD will follow-up 07/07/20.
--- NOTE | 2020-07-01 15:22 | NUR ---
PATIENT RESTING WELL IN BED. EYES CLOSED. BREATH SOUNDS EVEN. CALL LIGHT WITHIN REACH
[2020-07-01 18:27] VITALS: BP 140/48
--- NOTE | 2020-07-01 19:00 | NUR ---
ROUNDS MADE, PT RESTING, INFORMED PT THAT I WILL BE BACK SHORTLY TO DO ASSESSMENT, PT VERBALIZES UNDERSTANDING, DENIES NEEDS AT THIS TIME
--- NOTE | 2020-07-01 20:04 | NUR ---
PT RESTING WITH EYES CLOSED, RESP QUIET, NO DISTRESS NOTED, LEFT UNDISTURBED AT THIS TIME
--- NOTE | 2020-07-01 21:14 | NUR ---
ASSESSMENT PER FLOW SHEET, HEMOSPLIT TO UPPER RIGHT CHEST AND RIGHT AC, CDI WITH NO DRAINAGE NOTED, PD CATH TO RIGHT LOWER ABD CDI, ADM 2100 MEDS WITH APPLESAUCE, PER MD ORDERS, SEE EMAR, PT STEPHANIE WELL, PT DENIES NEEDS OR PAIN, FALL PRECAUTIONS IN PLACE
--- NOTE | 2020-07-01 22:21 | NUR ---
PT RESTING WITH EYES CLOSED, RESP QUIET, NO DISTRESS NOTED, LEFT UNDISTURBED AT THIS TIME
[2020-07-02] VITALS: BP 139/54
--- NOTE | 2020-07-02 | NUR ---
PT RESTING WITH EYES CLOSED, AROUSES TO SOFT VERBAL STIMULATION PER KAREN ROLLINS RN, CHARGE NURSE, VS OBTAINED, PT DENIES NEEDS OR PAIN AT THIS TIME, FALL PRECAUTIONS IN PLACED
[2020-07-02 04:59] VITALS: BP 141/57
--- NOTE | 2020-07-02 04:59 | NUR ---
PT RESTING WITH EYES CLOSED, AROUSES TO SOFT VERBAL STIMULATION, KAREN ROLLINS RN OBTAINED VS AND ADM PROTONIX, PT DENIES NEEDS OR PAIN AT THIS TIME
--- NOTE | 2020-07-02 07:26 | NUR ---
PT RESTING IN BED WITH EYES OPEN CALL LIGHT IN REACH NO PROBLEMS WILL MONITER
[2020-07-02 11:57] VITALS: BP 104/49
--- NOTE | 2020-07-02 16:34 | NUR ---
Hypotension and Bradycardia noted with tx. M.D notifed Pt having HR in low 40s. M.D and Group Director Experience aware of Bradycardia with no new orders at this time. 1000mls UF removed with tx. VS 105/49-48. Report given to Jeremiah Schuler RN.
[2020-07-02 18:31] VITALS: BP 125/78
--- NOTE | 2020-07-02 18:36 | NUR ---
PT RESTING IN BED WITH EYES OPEN CALL LIGHT IN REACH WILL MONITER
[2020-07-02 20:00] VITALS: BP 114/45
[2020-07-03 00:20] VITALS: BP 122/74
--- NOTE | 2020-07-03 02:05 | NUR ---
PT RESTING WTIH EYES CLOSED. RESPIRATIONS EVEN AND UNLABORED. BED IS LOW AND CALL LIGHT IS WITHIN REACH.
[2020-07-03 05:51] VITALS: BP 137/54
--- NOTE | 2020-07-03 08:00 | NUR ---
PT RESTING IN BED WITH EYES OPEN CALL LIGTH IN REACH WILL MONITER
--- NOTE | 2020-07-03 12:12 | NUR ---
REFERRAL HAS BEEN FAXED TO THE [facility] FOR POSSIBLE ADMISSION ON 07/09/20. WILL CONTINUE TO FOLLOW WITH PATIENT.
[2020-07-03 13:43] VITALS: BP 126/61
--- NOTE | 2020-07-03 17:30 | NUR ---
PT RESTING IN BED WITH EYES OPEN CALL LIGHT IN REACH NO PROBLEMS WILL MONITER
[2020-07-03 18:45] VITALS: BP 118/75
--- NOTE | 2020-07-03 20:00 | NUR ---
PATIENT RECEIVED SITTING UP IN BED. ASSESSMENT & VITAL SIGNS DONE. NO C/O PAINOR DISTRESS AT THIS TIME. BED LOW. ALARM ON. CALL LIGHT WITHIN REACH. WILL CONTINUE TO MONITOR.
[2020-07-04 00:12] VITALS: BP 130/52
--- NOTE | 2020-07-04 01:24 | NUR ---
I have reviewed this patient and I concur with the Shift Assessment completed by the Licensed Practical Nurse today this shift.
--- NOTE | 2020-07-04 01:55 | NUR ---
PATIENT EYES CLOSED. RESPIRATIONS 18 & EVEN. BED LOW. ALARM ON. CALL LIGHT WITHIN REACH. WILL CONTINUE TO MONITOR.
--- NOTE | 2020-07-04 05:46 | NUR ---
PATIENT HAD SMALL BM. PERIAREA & BUTTOCKS CLEANED. NEW MEPIPLEX APPLIED TO COCCYX AREA. OLD MEPIPLEX SOILED. NO ODOR OR OPEN AREA SEEN ON COCCYX. BED LOW. ALARM ON. CALL LIGHT WITHIN REACH. WILL CONTINUE TO MONITOR.
[2020-07-04 06:36] VITALS: BP 131/45
[2020-07-04 07:41] LABS: % SATURATION 35 % (15-55); IRON 67 ug/dl (35-150); TOTAL IRON BIND CAPACITY 189 ug/dl (260-445); UNSAT IRON BIND CAPACITY 122 ug/dl (150-375)
[2020-07-04 07:47] LABS: BASOPHILS 1.3 % (0-2); EOSINOPHILS 1.3 % (0-7); HEMATOCRIT 20.4 % (42.0-54.0); LYMPHOCYTES 11.5 % (15-50); MCH 30.4 pg (26.0-34.0); MCHC 34.7 g/dL (31.0-37.0); MCV 87.6 fL (80.0-100.0); MONOCYTES 9.8 % (2-11); NEUTROPHILS 76.1 % (40-80); PLATELET COUNT 167 10x3/uL (130-400); RBC 2.32 10x6/uL (4.20-6.10); RDW 22.6 % (11.5-14.5); WBC 6.4 10x3/uL (4.8-10.8)
[2020-07-04 08:00] LABS: HEMOGLOBIN 7.1 g/dL (13.5-17.5)
[2020-07-04 08:11] LABS: CALCIUM 9.1 mg/dL (8.5-10.1); CARBON DIOXIDE 28.5 mmol/L (21.0-32.0); CREATININE - SERUM 3.6 mg/dL (0.6-1.3); POTASSIUM - SERUM 4.5 mmol/L (3.5-5.1)
[2020-07-04 08:35] LABS: PHOSPHOROUS 1.3 mg/dL (2.5-4.9)
--- NOTE | 2020-07-04 09:00 | NUR ---
HE IS SETTING UP IN THE WHEELCHAIR FOR BREAKFAST. HE TOOK HIS MEDICATIONS CRUSHED IN APPLESAUCE. THE CALL LIGHT IS WITHIN REACH AND THE BED ALARM IS ON.
[2020-07-04 12:00] VITALS: BP 85/40
[2020-07-04 13:51] VITALS: BP 132/49
--- NOTE | 2020-07-04 15:24 | NUR ---
GOING TO DIALYSIS.
--- NOTE | 2020-07-04 16:42 | NUR ---
TOOK THE BLOOD TO THE DIALYSIS UNIT TO BE TRANSFUSED.
[2020-07-04 18:00] VITALS: BP 123/85
--- NOTE | 2020-07-04 18:45 | NUR ---
PATIENT RETURNED FROM DIALYSIS VIA BED. BED LOW. ALARM ON. CALL LIGHT WITHIN REACH. WILL CONTINUE TO MONITOR.
[2020-07-04 19:00] VITALS: BP 123/85
--- NOTE | 2020-07-04 19:00 | NUR ---
PATIENT RECEIVED SITTING UP IN BED. DIALYSIS BROUGHT PATIENT BACK. ASSESSMENT & VITAL SIGNS TAKEN. BED LOW. ALARM ON. CALL LIGHT WITHIN REACH. WILL CONTINUE TO MONITOR.
--- NOTE | 2020-07-04 19:15 | NUR ---
THIS NURSE AFTER REPORT LOOKING FOR PATIENT 1700 MEDICATION RETACRIT. NOT IN CASSETTE OR PHARMACY REFRIGERATOR. CHARGE NURSE MICHAEL LOOKED FOR RETACRIT IN CASSETTE & PHARMACY REFRIGERATOR ON REHAB FLOOR. RETACRIT NOT FOUND IN GLOBAL SEARCH.
--- NOTE | 2020-07-04 19:25 | NUR ---
WELDING INSTRUCTOR SYLVESTER NOTIFIED OF RETACRIT NOT FOUND ON THIS FLOOR OR GLOBAL SEARCH. COPY OF MAR FAXED TO [facility].
--- NOTE | 2020-07-04 19:55 | NUR ---
RETACRIT 4000U NOT FOUND IN GLOBAL FIND. BARREL DEDENTING MACHINE OPERATOR NOTIFIED.
--- NOTE | 2020-07-04 21:20 | NUR ---
TOLL OPERATOR NOTIFIED THIS NURSE THAT RETACRIT WAS NOT AVAILABLE.
--- NOTE | 2020-07-05 00:15 | NUR ---
PATIENT AWAKE. PATIENT SAID IT WAS OK TO GIVE BED BATH. BED BATH GIVEN. LOTION APPLIED TO SKIN. IV TO RIGHT ARM CAME OUT. IV SITE BLEEDING. PRESSURE DRESSING APPLIED. BLOOD STOPPED. PATIENT HAD BM IN BRIEF. BM COLLECTED & SENT TO LAB PER ORDER.
[2020-07-05 00:36] VITALS: BP 123/45
[2020-07-05 04:56] VITALS: BP 131/39
--- NOTE | 2020-07-05 05:18 | NUR ---
I have reviewed this patient and I concur with the Shift Assessment completed by the Licensed Practical Nurse today this shift.
[2020-07-05 07:17] LABS: BASOPHILS 1.1 % (0-2); EOSINOPHILS 1.1 % (0-7); HEMATOCRIT 22.4 % (42.0-54.0); HEMOGLOBIN 7.8 g/dL (13.5-17.5); LYMPHOCYTES 10.2 % (15-50); MCH 30.4 pg (26.0-34.0); MCHC 34.8 g/dL (31.0-37.0); MCV 87.3 fL (80.0-100.0); MEAN PLATELET VOLUME 7.5 fL (7.4-10.4); MONOCYTES 8.3 % (2-11); NEUTROPHILS 79.3 % (40-80); PLATELET COUNT 160 10x3/uL (130-400); RBC 2.57 10x6/uL (4.20-6.10); RDW 22.9 % (11.5-14.5)
[2020-07-05 07:31] LABS: ALBUMIN 2.9 g/dL (3.4-5.0); ANION GAP 11.3 mmol/L (8-16); BILIRUBIN - TOTAL 1.64 mg/dL (0.2-1.3); CALCIUM 8.6 mg/dL (8.5-10.1); CARBON DIOXIDE 30.2 mmol/L (21.0-32.0); CREATININE - SERUM 2.8 mg/dL (0.6-1.3); POTASSIUM - SERUM 4.5 mmol/L (3.5-5.1); PROTEIN - SERUM 5.6 g/dL (6.4-8.2)
[2020-07-05 07:32] LABS: PHOSPHOROUS 1.7 mg/dL (2.5-4.9)
--- NOTE | 2020-07-05 09:45 | NUR ---
HE DID NOT FEEL LIKE GETTING OUT OF BED THIS MORNING. HE IS NOW UP IN THE WHEELCHAIR. NEW IV STARTED TO THE LEFT WRIST AREA, 22 G. I SPOKE WITH HIS AND UPDATED HER ABOUT HIM. THE CALL LIGHT IS WITHIN REACH AND THE BED ALARM IS ON.
[2020-07-05 12:47] VITALS: BP 122/48
[2020-07-05 18:22] VITALS: BP 121/42
--- NOTE | 2020-07-05 19:45 | NUR ---
PATIENT RECEIVED SITTING UP IN BED. ASSESSMENT & VITAL SIGNS DONE. BEDSIDE TABLE & CALL LIGHT WITHIN REACH. ALARM ON. WILL CONTINUE TO MONITOR.
[2020-07-05 23:53] VITALS: BP 113/46
--- NOTE | 2020-07-06 02:00 | NUR ---
PATIENT EYES CLOSED. RESPIRATIONS 18 & EVEN. ALARM ON. CALL LIGHT & BEDSIDE TABLE WITHIN REACH. WILL CONTINUE TO MONITOR.
--- NOTE | 2020-07-06 04:21 | NUR ---
I have reviewed this patient and I concur with the Shift Assessment completed by the Licensed Practical Nurse today this shift.
[2020-07-06 05:51] VITALS: BP 124/43
--- NOTE | 2020-07-06 08:00 | NUR ---
PT RESTING IN BED WITH EYES OPEN CALL LIGHT IN REACH NO PROBLEMS WILL MONITER
[2020-07-06 08:29] LABS: BASOPHILS 1.3 % (0-2); EOSINOPHILS 1.5 % (0-7); HEMATOCRIT 22.5 % (42.0-54.0); HEMOGLOBIN 7.7 g/dL (13.5-17.5); LYMPHOCYTES 11.8 % (15-50); MCH 30.5 pg (26.0-34.0); MCHC 34.1 g/dL (31.0-37.0); MCV 89.2 fL (80.0-100.0); MEAN PLATELET VOLUME 7.9 fL (7.4-10.4); MONOCYTES 8.4 % (2-11); PLATELET COUNT 159 10x3/uL (130-400); RBC 2.52 10x6/uL (4.20-6.10); RDW 22.9 % (11.5-14.5); WBC 6.3 10x3/uL (4.8-10.8)
[2020-07-06 08:46] LABS: ANION GAP 8.4 mmol/L (8-16); CALCIUM 8.2 mg/dL (8.5-10.1); CARBON DIOXIDE 30.6 mmol/L (21.0-32.0)
[2020-07-06 08:53] LABS: CREATININE - SERUM 3.6 mg/dL (0.6-1.3)
[2020-07-06 12:16] VITALS: BP 137/47
[2020-07-06 18:37] VITALS: BP 135/56
--- NOTE | 2020-07-06 18:39 | NUR ---
PT RESTING IN BED WITH EYES OPEN CALL LIGHT IN REACH NO PROBLEMS WILL MONITER
[2020-07-06 19:45] VITALS: BP 126/48
[2020-07-07 00:09] VITALS: BP 124/45
--- NOTE | 2020-07-07 02:40 | NUR ---
PT IS RESTING WITH EYES CLOSED. RESPIRATIONS EVEN AND UNLABORED. HIS BED IS LOW AND CALL LIGHT IS WITHIN REACH.
[2020-07-07 05:09] VITALS: BP 129/52
[2020-07-07 07:00] LABS: RBC 2.38 10x6/uL (4.20-6.10)
[2020-07-07 07:02] LABS: EOSINOPHILS 1.3 % (0-7); HEMATOCRIT 20.9 % (42.0-54.0); LYMPHOCYTES 10.6 % (15-50); MCH 30.5 pg (26.0-34.0); MCHC 34.7 g/dL (31.0-37.0); MEAN PLATELET VOLUME 7.4 fL (7.4-10.4); MONOCYTES 8.5 % (2-11); NEUTROPHILS 78.6 % (40-80); PLATELET COUNT 154 10x3/uL (130-400); WBC 7.5 10x3/uL (4.8-10.8)
[2020-07-07 07:06] LABS: HEMOGLOBIN 7.3 g/dL (13.5-17.5)
[2020-07-07 07:30] LABS: ANION GAP 13.5 mmol/L (8-16); CALCIUM 7.9 mg/dL (8.5-10.1); CARBON DIOXIDE 28.6 mmol/L (21.0-32.0); CREATININE - SERUM 3.8 mg/dL (0.6-1.3); PHOSPHOROUS 4.1 mg/dL (2.5-4.9); POTASSIUM - SERUM 4.1 mmol/L (3.5-5.1)
--- NOTE | 2020-07-07 08:00 | NUR ---
PT RESTING IN BED PT EATING BREAKFAST TOLERATING WELL CALL LIGHT IN REACH WILL MONITER
[2020-07-07 12:23] VITALS: BP 142/58
--- NOTE | 2020-07-07 12:43 | NUR ---
PD CATH FLUSHED WITH 500CC 2.5 PERITENEAL DIALYSIS FLUID. 500 CC PINK TINGED FLUID RETURNED. DRESSSING TO PERITENEAL CATH CHANGE PT TOLERATED PROCEDURE WELL.
--- NOTE | 2020-07-07 13:00 | NUR ---
PT TRANSPORTED DIALYSIS VIA BED. PT TO RECIVE 1 UNIT PRBC ON DIALYSIS
--- NOTE | 2020-07-07 13:18 | NUR ---
Nutrition Re-Assessment Diet: Low Sodium Mech Soft with Chopped Meats + Ensure with meals PO intake: ~10% average x last 9 meals. He indicated to me that his appetite is "better." He indicates that he is drinking Ensure. Last BM: 07/03/20 Wt: 124# (07/07/20); Admit Wt: 151# (06/25/20)- Noted -27# weight loss over the past 2 weeks. Patient is on HD so some weight loss is likely fluid related, however, patient has had poor/inadequate PO intake for at least the past 3 weeks. Patient appears to have lost weight since this RD has been following him throughout Rehab and acute care hospital stay. Meds noted: megace, bumex, magox Labs noted: BUN 44(H), Cr 3.8(H), GFR 16(L) Estimated nutrition needs: 2060-2400cal (30-35kcal/kg Act), 68-90gms protein (1-1.3gm/kg), 1000mL + UOP (or per MD) Nutrition diagnosis: Severe (stage 2) malnutrition r/t inadequate oral/energy intake AEB: -Phenotypic criteria: ~18% body weight loss in <6 months, Low BMI 19.4 and >70 years old. -Etiologic criteria: <50% of estimated energy requirements for > 1 week at least. Nutrition goals: -PO intake will increase to >75% meals -Dry weight Stable, no further weight loss Recommendations/Interventions: -Recommend continue current diet and oral nutrition supplements. Will continue to honor food preferences within diet restrictions. -Will continue to monitor PO intake and wt trend. -RD will follow-up 07/10/20.
[2020-07-07 18:37] VITALS: BP 135/78
[2020-07-07 18:51] VITALS: BP 131/51
--- NOTE | 2020-07-07 19:05 | NUR ---
ROUNDS MADE, PT TALKING TO YANIQUE SPEECH PATHOLOGIST, INFORMED PT THAT I WILL BE BACK SHORTLY, PT DENIES NEEDS OR PAIN AT THIS TIME
--- NOTE | 2020-07-07 20:09 | NUR ---
PT RESTING WITH EYES CLOSED, RESP QUIET, NO DISTRESS NOTED, LEFT UNDISTURBED AT THIS TIME
--- NOTE | 2020-07-07 21:30 | NUR ---
PT AWAKE, ASSESSMENT PER FLOW SHEET, PT REFUSES 2100 MEDS AT THIS TIME, WILL HAVE KAREN ROLLINS RN ATTEMPT TO ADM
--- NOTE | 2020-07-07 22:00 | NUR ---
KAREN ROLLINS RN ADM 2100 MEDS CRUSHED IN APPLESAUCE
[2020-07-08] VITALS: BP 123/52
--- NOTE | 2020-07-08 | NUR ---
VS OBTAINED PER TELECOMMUNICATIONS ADMINISTRATOR
--- NOTE | 2020-07-08 02:30 | NUR ---
PT AWAKE, REQUESTED AND PROVIDED WARM BLANKET, DENIES FURTHER NEEDS
--- NOTE | 2020-07-08 04:38 | NUR ---
PT RESTING WITH EYES CLOSED, RESP QUIET, NO DISTRESS NOTED, LEFT UNDISTURBED AT THIS TIME
[2020-07-08 06:00] VITALS: BP 125/54
[2020-07-08 07:29] LABS: BASOPHILS 0.9 % (0-2); EOSINOPHILS 1.1 % (0-7); HEMATOCRIT 22.8 % (42.0-54.0); HEMOGLOBIN 8.2 g/dL (13.5-17.5); MCH 31.2 pg (26.0-34.0); MCHC 35.8 g/dL (31.0-37.0); MCV 87.2 fL (80.0-100.0); MEAN PLATELET VOLUME 7.4 fL (7.4-10.4); MONOCYTES 10.8 % (2-11); NEUTROPHILS 77.2 % (40-80); PLATELET COUNT 127 10x3/uL (130-400); RBC 2.61 10x6/uL (4.20-6.10); RDW 22.6 % (11.5-14.5)
[2020-07-08 07:44] LABS: ANION GAP 10.4 mmol/L (8-16); CALCIUM 7.7 mg/dL (8.5-10.1); CARBON DIOXIDE 30.2 mmol/L (21.0-32.0); POTASSIUM - SERUM 3.6 mmol/L (3.5-5.1)
[2020-07-08 07:46] LABS: CREATININE - SERUM 2.7 mg/dL (0.6-1.3)
[2020-07-08 12:02] VITALS: BP 125/45
--- NOTE | 2020-07-08 15:34 | NUR ---
CARE TEAM MEETING: PATIENT SPOUSE ATTENDED THE MEETING. HER QUESTIONS AND CONCERNS WERE ADDRESSED. PATIENT HAS BEEN ACCEPTED TO THE [facility] IN [place] AND WILL DISCHARGE THERE 07/09/20 VIA FACILITY VAN. PATIENT WILL HAVE HD ON WITH A CHAIR TIME OF 3:00 TO ARRIVE AT 2:30. HE WILL SEE HIS REANL PHYSICIAN AT THAT TIME. AN APPOINTMENT WITH PATIENT PCP DR. GROVER WOLF WILL BE MADE AT TIME OF DISCHARGE FROM FACILITY. FUNMILAYO SIGNED, IMM SERVED AND EXPLAINED, NO COMPARE DATA REVIEWED PATIENT SPOUSE CHOSE FACILITY CLOSER TO THEIR HOME. WILL CONTINUE TO FOLLOW WITH PATIENT.
[2020-07-08 20:13] VITALS: BP 133/47
--- NOTE | 2020-07-08 22:28 | NUR ---
RESTING IN BED, NO DISTRESS NOTED, APHASIA NOTED, DRESSING APPLIED TO PD TUBE, NO S/S OF INFECTION NOTED, CONT TO MONITOR
[2020-07-09 05:58] VITALS: BP 122/49
[2020-07-09] MEDS ORDERED: MEGACE40 MG PO (10:58)
[2020-07-09] MEDS ORDERED: NEPHRO-VITE RX1 TAB PO (10:58)
[2020-07-09] MEDS ORDERED: RETACRIT SC (11:12)
--- NOTE | 2020-07-09 19:44 | RHP ---
PATIENT: LEESA MORENO MEDICAL RECORD: [id number] ACCOUNT: [id number] LOCATION:[facility] [id number] : 40 ADMISSION DATE: 06/25/20 REHABILITATION HISTORY AND PHYSICAL EXAMINATION POST ADMISSION PHYSICIAN EXAMINATION ADMITTING DIAGNOSES: Disuse myopathy and cerebrovascular accident. HISTORY OF PRESENT ILLNESS: The patient is a 79-year-old gentleman who is on peritoneal dialysis previously prior to a stroke. He was in rehab and doing well. His stroke worsened and he had more aphasia and a problem with his speech. MRI showed a thromboembolic phenomenon. He was already on blood thinners at that time. The patient was transferred back to the floor on 06/21/2020. He had a HemoSplit procedure done. He continued to have dialysis done since that time. He was discontinued on some of his bleeding medicines including his Eliquis prior to the procedure. Cardiology was consulted secondary to bradycardia. They felt like he had sick sinus syndrome; however, if he developed any more bradycardia they would consider putting permanent pacemaker. An echo showed that he had an EF of 50%, did have moderate aortic stenosis. He also had some AFib at time, but was asymptomatic. There was no indication at this time to place a pacemaker. He has had hemodialysis on 06/23/2020 and tolerated it well. He is very unsteady when standing and his lower extremities are quite weak. Recommended coming back to rehab. He is quite cooperative in therapy. The patient's speech is still somewhat garbled. Speech therapy is recommended to continue and work on some basic communication skills that were lost during his recent CVA. Due to his severe debility and new hemodialysis, he is unable really to return home at this time safely. He will require intensive inpatient therapy to get back to his prior level of functioning. COMORBIDITIES: In this patient include aphasia, arrhythmia, bradycardia, cognitive deficit, CVA, decrease in mobility, decrease in physical function, difficulty walking, dysarthria dyspnea end-stage renal disease on dialysis, incontinence, paroxysmal atrial fib, safety concerns and slurred speech. PAST MEDICAL HISTORY: Significant for hypertension, atrial fib, hyperlipidemia, COPD, end-stage renal disease, chronic back pain, chronic kidney disease, coronary artery disease, enlarged prostate, gout, inflammatory arthritis, AFib, history of renal cell carcinoma, posttraumatic osteoarthritis, atrial flutter, CVA, right-sided weakness, peptic ulcer disease and degenerative joint disease. PAST SURGICAL HISTORY: Includes he has had laparoscopic insertion of intraperitoneal catheter in the past, a Watchman procedure, renal ablation, lumbar laminectomy, discectomy, prostate biopsy and kyphoplasty. ALLERGIES: OXYCODONE AND GABAPENTIN. CURRENT MEDICATIONS: Include Norvasc 5 mg daily, Mag-Ox 400 mg daily, he is on Uloric 40 mg daily, he is on Plavix 75 mg daily, aspirin chewable 81 mg daily, Carafate gram t.i.d. and before meals, he is on Bumex 2 mg b.i.d., Protonix 40 mg daily, Aldactone 25 mg b.i.d., Cardura 4 mg at bedtime, atorvastatin 80 mg at bedtime, Eliquis 2.5 mg b.i.d. and Ventolin updrafts. HABITS: No alcohol or tobacco use. HISTORY AND PHYSICAL [id number] LEESA MORENO FAMILY HISTORY: Noncontributory. SOCIAL HISTORY: The patient hopes to return back home and get back to his prior level of function and to his . REVIEW OF SYSTEMS: GENERAL: He does have weakness. HEENT: He denies cold, cough or congestion. CARDIOVASCULAR: Denies any chest pain. PHYSICAL EXAMINATION: VITAL SIGNS: Stable, afebrile. GENERAL: A somewhat elderly debilitated gentleman in no acute distress upon exam. HEENT: Normocephalic and atraumatic. Mucosa moist. NECK: Supple with no lymphadenopathy. LUNGS: Clear at this time. No wheezing or rales. HEART: Irregular rate and rhythm. ABDOMEN: Soft, benign, nondistended. Positive bowel sounds times 4. EXTREMITIES: No clubbing, cyanosis or edema. His HemoSplit looks good. NEUROLOGIC: Consistent with a CVA. LABORATORY DATA: White count is 7.7, H&H of 8.4 and 24.5 and platelet count is 193. His sodium is 139, potassium 3.3, BUN and creatinine of 12 and 2.0 and blood sugar is noted to be 92. ASSESSMENT: This is a 79-year-old gentleman admitted to the rehab with a working diagnosis of disuse myopathy complicated by recent cerebrovascular accident and new onset hemodialysis. The patient has potential to make improvement. We instituted the following multidisciplinary therapies including, not limited to physical, occupational, respiratory, speech, nutritional services, prosthetics and orthotics. Given his complex medical condition and risks for more complications, rehabilitation services cannot be provided at a low level of care such as half-way facility. PLAN: 1. Admit to [facility] for inpatient therapy to include the following disciplines; A. Physical therapy to improve gait, all transfer skills and bed mobility to a modified independent level. B. Occupational therapy to improve activities of daily living. C. Case management to help with discharge planning and placement options. D. Nutrition to assist with nutritional needs. E. Rehabilitation nursing to assist in monitoring the patient's underlying medical condition and to assist with any type of bowel or bladder management. 2. The patient's current medication and medical care will be continued. 3. Placed on standard fall precautions. 4. The patient's estimated length of stay is approximately 7 to 10 days. 5. Discuss this patient during care team staff meeting this week and appreciate nephrology helping us with this patient. TRANSINT:[id number] Voice Confirmation ID: [id number] DOCUMENT ID: [id number] GERMAIN notes whether there has been none or any medical/functional HISTORY AND PHYSICAL [id number] LEESA MORENO change since admission: - No change since preadmission screen. GERMAIN attests patient continues to be appropriate for IRF: - Continues to be appropriate. MAXI MELGOZA MD at 1944 CC: [id number] DICTATION DATE: 06/26/20 0835 AUDIO DIRECTOR: 06/26/20 1001 DIS IN 07/09/20 [id number] [place] [address]
== END 2020-07-09 12:55 | DRG 91 ==
LOC: D.REHAB 15:46
PROVIDERS: Internal Medicine Nephrology; ADMIT Emergency Medicine; ATTEND Emergency Medicine
DX: G72.89 Other specified myopathies (principal); N18.6 End stage renal disease; R47.01 Aphasia; I12.0 Hypertensive chronic kidney disease with stage 5 chronic kidney disease or end stage renal disease; I69.319 Unspecified symptoms and signs involving cognitive functions following cerebral infarction; I49.9 Cardiac arrhythmia, unspecified; R26.2 Difficulty in walking, not elsewhere classified; Z99.2 Dependence on renal dialysis; I48.0 Paroxysmal atrial fibrillation; R32 Unspecified urinary incontinence; R47.81 Slurred speech; E78.5 Hyperlipidemia, unspecified; J44.9 Chronic obstructive pulmonary disease, unspecified; I25.10 Atherosclerotic heart disease of native coronary artery without angina pectoris; I69.391 Dysphagia following cerebral infarction; R13.10 Dysphagia, unspecified; I69.322 Dysarthria following cerebral infarction; I69.320 Aphasia following cerebral infarction

== ENCOUNTER 2020-07-23 19:49 | Inpatient (IN) | payer MEDICARE, OTHER ==
[~2020-07-23] VITALS: Ht 170.2 cm; Wt 58.0 kg
[~2020-07-23 19:49] MED LIST changes: +MEGACE40 MG PO; +NEPHRO-VITE RX1 TAB PO; +RETACRIT SC
[2020-07-23] MEDS ORDERED: NORVASC5 MG PO (20:17)
[2020-07-23] MEDS ORDERED: ASPIRIN81 MG PO (20:17)
[2020-07-23] MEDS ORDERED: PLAVIX75 MG PO (20:18)
[2020-07-23] MEDS ORDERED: BUMEX2 MG PO (20:18)
[2020-07-23] MEDS ORDERED: BREO ELLIPTA 11 EACH INH (20:18)
[2020-07-23] MEDS ORDERED: VITAMIN B-121000 MCG IM (20:20)
[2020-07-23] MEDS ORDERED: ULORIC40 MG PO (20:21)
[2020-07-23] MEDS ORDERED: CARDURA4 MG PO (20:21)
[2020-07-23] MEDS ORDERED: MAG-OX 400 MG400 MG PO (20:22)
[2020-07-23] MEDS ORDERED: PROTONIX40 MG PO (20:22)
--- NOTE | 2020-07-23 20:30 | NUR ---
SPOKE WITH PT , EMILIE MORENO AT [phone] AT THIS TIME. UPDATED ON PLAN OF CARE. TELEPHONE CONSENT OBTAINED BY THIS NURSE AND ALEXI BORJA. STATES SHE WILL BE HERE TOMORROW MORNING APPROX 0830, AND WILL BRING DNR AND POA PAPERWORK WITH HER. SHE ALSO GAVE TELEPHONE CONSENT TO EDP AND THIS NURSE FOR DNR.
[2020-07-23 20:31] VITALS: BP 119/48
[2020-07-23 21:03] VITALS: BP 138/50
[2020-07-23 21:30] VITALS: BP 124/39
[2020-07-23 22:00] VITALS: BP 121/49
--- NOTE | 2020-07-23 23:15 | NUR ---
PT ARRIVED TO FLOOR, FIRST UNIT OF PRBC INFUSING PER ORDER.
--- NOTE | 2020-07-23 23:36 | NUR ---
RECEIVED FROM ER, PT IS NON-VERBAL, CONFUSED, BLOOD INFUSING TO RAC, PLACED ON TELEMTRY, BED IS LOW, SRX2, CALL LIGHT IN REACH, WILL CONTINUE PLAN OF CARE
[2020-07-23 23:56] VITALS: BP 112/51; BMI 22.8
--- NOTE | 2020-07-24 00:15 | NUR ---
FIRST UNIT OF PRBCS COMPLETED AT THIS TIME.
[2020-07-24] MEDS ORDERED: ELIQUIS2.5 MG PO (00:56)
[2020-07-24] MEDS ORDERED: ALDACTONE25 MG PO (00:57)
[2020-07-24] MEDS ORDERED: ACETAMINOPHEN325 MG PO (00:58)
--- NOTE | 2020-07-24 01:07 | NUR ---
2ND UNIT OF PRBC INFUSING AT THIS TIME
[2020-07-24 01:14] VITALS: BP 120/58
--- NOTE | 2020-07-24 01:21 | NUR ---
SECOND UNIT OF PRBCS STARTED PER ORDER, VITAL SIGNS WITHOUT CHANGE. PT AROUSABLE AT TIMES.
[2020-07-24 01:33] VITALS: BP 118/43
[2020-07-24] MEDS ORDERED: LIPITOR80 MG PO (01:39)
--- NOTE | 2020-07-24 03:48 | NUR ---
SECOND UNIT OF PRBC FINISHED INFUSING AT THIS TIME. LUNGS CTA SINCE 1ST DOSE OF LASIX. PRODUCTIVE COUGH. PT WITH GRIMACE ON HIS FACE, REPOSITIONED FOR COMFORT, WHEN ASKED ABOUT PAIN PT SHAKES HIS HEAD.
--- NOTE | 2020-07-24 04:59 | NUR ---
UNIT 3 PRBC BEING INFUSED NOW
--- NOTE | 2020-07-24 06:25 | NUR ---
I have reviewed this patient and I concur with the Shift Assessment completed by the Licensed Practical Nurse today this shift.
[2020-07-24 06:41] VITALS: BP 126/59
--- NOTE | 2020-07-24 08:07 | NUR ---
BLOOD UNIT #4 STARTED, VITAL SIGNS. 97.5,51,16,118/40
[2020-07-24 11:16] VITALS: BP 131/41
[2020-07-24 11:22] LABS: EOSINOPHILS 0.3 % (0-7); HEMATOCRIT 27.9 % (42.0-54.0); HEMOGLOBIN 9.4 g/dL (13.5-17.5); LYMPHOCYTES 3.8 % (15-50); MCH 30.4 pg (26.0-34.0); MCHC 33.9 g/dL (31.0-37.0); MCV 89.8 fL (80.0-100.0); MEAN PLATELET VOLUME 7.3 fL (7.4-10.4); MONOCYTES 9.3 % (2-11); NEUTROPHILS 85.6 % (40-80); RDW 19.4 % (11.5-14.5); WBC 10.3 10x3/uL (4.8-10.8)
[2020-07-24 11:36] LABS: PLATELET COUNT 178 10x3/uL (130-400)
[2020-07-24 12:05] LABS: ALBUMIN 2.3 g/dL (3.4-5.0); ANION GAP 10.8 mmol/L (8-16); BILIRUBIN - TOTAL 1.71 mg/dL (0.2-1.3); CALCIUM 7.6 mg/dL (8.5-10.1); CREATININE - SERUM 3.4 mg/dL (0.6-1.3); POTASSIUM - SERUM 3.8 mmol/L (3.5-5.1)
[2020-07-24 13:24] VITALS: BMI 22.8
[2020-07-24 20:00] VITALS: BP 134/49
[2020-07-25] VITALS: BP 115/47
[2020-07-25 04:00] VITALS: BP 87/44
[2020-07-25 05:15] LABS: BASOPHILS 0.9 % (0-2); EOSINOPHILS 0.7 % (0-7); HEMATOCRIT 26.4 % (42.0-54.0); LYMPHOCYTES 5.7 % (15-50); MCH 30.4 pg (26.0-34.0); MCV 89.2 fL (80.0-100.0); MEAN PLATELET VOLUME 7.4 fL (7.4-10.4); MONOCYTES 6.2 % (2-11); NEUTROPHILS 86.5 % (40-80); PLATELET COUNT 154 10x3/uL (130-400); RBC 2.96 10x6/uL (4.20-6.10); WBC 8.6 10x3/uL (4.8-10.8)
--- NOTE | 2020-07-25 05:27 | NUR ---
CALLED FOR UPDATE, UPDATE GIVEN.
[2020-07-25 06:05] LABS: ALBUMIN 2.2 g/dL (3.4-5.0); ANION GAP 10.5 mmol/L (8-16); BILIRUBIN - TOTAL 1.78 mg/dL (0.2-1.3); CALCIUM 7.6 mg/dL (8.5-10.1); CARBON DIOXIDE 30.6 mmol/L (21.0-32.0); MAGNESIUM - SERUM 1.9 mg/dL (1.8-2.4); PROTEIN - SERUM 4.4 g/dL (6.4-8.2)
[2020-07-25 06:06] LABS: CREATININE - SERUM 2.2 mg/dL (0.6-1.3); POTASSIUM - SERUM 3.1 mmol/L (3.5-5.1)
[2020-07-25 07:53] VITALS: BP 127/45
[2020-07-25 11:40] VITALS: BP 124/48
[2020-07-25 15:39] VITALS: BP 118/46
[2020-07-25 20:00] VITALS: BP 136/52
--- NOTE | 2020-07-25 21:19 | NUR ---
INITIAL ROUNDS COMPLTED AT 1935 HRS. NO DISTRESS NOTED. CALLED AT 1938 HRS. UPDATE GIVEN. ASSESSMENT COMPLETED AT 2009 HRS. VSS. PT ALERT, APHASIC. FOLLOWS COMMANDS. CAF PER CM HR 44. IV TO RAC SL. R CHEST HEMOSPLIT CLEAN,DRY AND INTACT. O2 4LNC. LUNGS DIMINISHED IN BASES BILAT. BUNDY, PALPABLE PERIPHERAL PULSES. SALAZAR DRAINING SCANT, DARK URINE. PT CURRENTLY WATCHING TV. SR UP X2,CALL LIGHT WITHIN REACH.
--- NOTE | 2020-07-25 22:53 | NUR ---
PT RESTING WITH EYES CLOSED. RESP EVEN AND REGULAR. SR UP X2, CALL LIGHT WITHIN REACH.
--- NOTE | 2020-07-26 00:03 | NUR ---
WATCHING TV. DENIES ANY NEEDS OR DISCOMFORT. SR UP X2,CALL LIGHT WITHIN REACH.
[2020-07-26 02:00] VITALS: BP 145/53
--- NOTE | 2020-07-26 03:08 | NUR ---
PT RESTING WITH EYES CLOSED. RESP EVEN AND REGULAR. SR UP X2, CALL LIGHT WITHIN REACH AND BED ALARM ON.
--- NOTE | 2020-07-26 04:23 | NUR ---
PT AWAKE; DENIES ANY DISCOMFORT. SR UP X2, CALL LIGHT WITHIN REACH.
[2020-07-26 06:10] VITALS: BP 149/51
[2020-07-26 06:21] LABS: BASOPHILS 0.8 % (0-2); EOSINOPHILS 2.6 % (0-7); HEMATOCRIT 24.7 % (42.0-54.0); HEMOGLOBIN 8.4 g/dL (13.5-17.5); LYMPHOCYTES 8.7 % (15-50); MCH 30.6 pg (26.0-34.0); MCHC 34.2 g/dL (31.0-37.0); MCV 89.6 fL (80.0-100.0); MEAN PLATELET VOLUME 7.6 fL (7.4-10.4); MONOCYTES 8.5 % (2-11); NEUTROPHILS 79.4 % (40-80); PLATELET COUNT 155 10x3/uL (130-400); RBC 2.75 10x6/uL (4.20-6.10); RDW 19.9 % (11.5-14.5); WBC 6.5 10x3/uL (4.8-10.8)
--- NOTE | 2020-07-26 06:31 | NUR ---
VSS THROUGHOUT NGIHT. CAF PER CM HR IN 40'S. PT RESTED WELL DURING SHIFT. NEEDS MET; WILL CONTINUE TO MONITOR.
[2020-07-26 06:39] LABS: ALBUMIN 2.2 g/dL (3.4-5.0); BILIRUBIN - TOTAL 1.49 mg/dL (0.2-1.3); CALCIUM 8.1 mg/dL (8.5-10.1); CARBON DIOXIDE 27.5 mmol/L (21.0-32.0); CREATININE - SERUM 2.7 mg/dL (0.6-1.3); MAGNESIUM - SERUM 2.1 mg/dL (1.8-2.4); POTASSIUM - SERUM 3.5 mmol/L (3.5-5.1); PROTEIN - SERUM 4.8 g/dL (6.4-8.2)
--- NOTE | 2020-07-26 07:20 | NUR ---
RECIEVE REPORT. CONTROLLED AFIB ON TELEMETRY. SALAZAR DRAINING BY GRAVITY. 4L O2. DENIES ANY NEEDS. CONTINUE PLAN OF CARE AND SAFETY PRECAUTIONS.
[2020-07-26 08:12] VITALS: BP 145/50
[2020-07-26 11:23] VITALS: BP 142/49
[2020-07-26 15:30] VITALS: BP 129/62
[2020-07-26 18:49] VITALS: Ht 170.2 cm; Wt 58.0 kg
--- NOTE | 2020-07-26 19:59 | NUR ---
INITIAL ROUNDS COMPLETED AT 1920 HRS. PT DENIES ANY DISCOMFORT.
[2020-07-26 20:43] VITALS: BP 144/52
--- NOTE | 2020-07-26 22:32 | NUR ---
ASSESSMENT COMPLETED AT 1940 HRS. VSS. CAF PER CM HR 47. PT ALERT, APHASIC. FOLLOWS COMMANDS. NUMEROUS BRUISES NOTED TO BODY. IV TO RAC SL. R CHEST HEMOSPLIT NOTED. BUNDY. PALPABLE PERIPHERAL PULSES. SALAZAR DRAINING YELLOW URINE. O2 4LNC. PT REPOSITIONED IN BED AT 2200 HRS. DENIES ANY DISCOMFORT AT THAT TIME. PT CURRENTLY RESTING WITH EYES CLOSED. RESP EVEN AND REGULAR. SR UP X2, CALL LIGHT WITHIN REACH AND BED ALARM ON.
--- NOTE | 2020-07-26 23:22 | NUR ---
TELEMETRY REMOVED PER TELEMETRY PROTOCOL.
[2020-07-27 00:10] VITALS: BP 165/56
--- NOTE | 2020-07-27 00:22 | NUR ---
IV TO RAC OUT. LOWER DENTURE SOAKING. SR UP X2, CALL LIGHT WITHIN REACH.
--- NOTE | 2020-07-27 00:58 | NUR ---
NEW IV STARTED #20 TO INNER R FA WITH ATTEMPT X1. PT TOLERATED ACTIVITY WELL.
--- NOTE | 2020-07-27 02:50 | NUR ---
PT RESTING WITH EYES CLOSED. RESP EVEN AND REGULAR. SR UP X2, CALL LIGHT WITHIN REACH.
--- NOTE | 2020-07-27 04:32 | NUR ---
O2 OFF WITH O2 SAT 87% ON RA. O2 4LNC PLACED BACK ON AND O2 SAT UP TO 90% WITHIN A FEW MINUTES. VSS. PT DENIES ANY DISCOMFORT. SR UP X2, CALL LIGHT WITHIN REACH.
[2020-07-27 04:47] VITALS: BP 139/55
[2020-07-27 05:32] LABS: BASOPHILS 0.2 % (0-2); EOSINOPHILS 2.3 % (0-7); HEMATOCRIT 26.1 % (42.0-54.0); HEMOGLOBIN 8.7 g/dL (13.5-17.5); LYMPHOCYTES 7.9 % (15-50); MCH 30.1 pg (26.0-34.0); MCHC 33.2 g/dL (31.0-37.0); MCV 90.6 fL (80.0-100.0); MEAN PLATELET VOLUME 7.4 fL (7.4-10.4); MONOCYTES 9.2 % (2-11); NEUTROPHILS 80.4 % (40-80); PLATELET COUNT 170 10x3/uL (130-400); RBC 2.88 10x6/uL (4.20-6.10); RDW 20.5 % (11.5-14.5); WBC 6.4 10x3/uL (4.8-10.8)
[2020-07-27 06:01] LABS: ALBUMIN 2.2 g/dL (3.4-5.0); ANION GAP 15.7 mmol/L (8-16); BILIRUBIN - TOTAL 1.46 mg/dL (0.2-1.3); CARBON DIOXIDE 24.9 mmol/L (21.0-32.0); CREATININE - SERUM 2.8 mg/dL (0.6-1.3); MAGNESIUM - SERUM 2.1 mg/dL (1.8-2.4); POTASSIUM - SERUM 3.6 mmol/L (3.5-5.1); PROTEIN - SERUM 4.9 g/dL (6.4-8.2)
--- NOTE | 2020-07-27 06:07 | NUR ---
VSS PT DENIED ANY DISCOMFORT. LOWER DENTURE CLEANED AND PLACED BACK IN MOUTH. NEEDS MET; WILL CONTINUE TO MONITOR.
--- NOTE | 2020-07-27 06:35 | NUR ---
BS 58 PER LAB. PT PLACED IN HIGH FOWLERS AND FED 1 CONTAINER OF ORANGE SHERBERT OVER 15 MINUTES. PT TOLERATED FEEDING WELL.
--- NOTE | 2020-07-27 07:20 | NUR ---
RECIEVE REPORT. RESTING IN BED WITH EYES CLOSED. NO SIGNS OF DISTRESS. CONTINUE PLAN OF CARE AND SAFETY PRECAUTIONS.
[2020-07-27 08:06] VITALS: BP 149/52
--- NOTE | 2020-07-27 13:47 | NUR ---
Nutrition Follow-up: Pt still on clear liquid diet. ST & GI consults pending. HD MWF. Discussed in IDT. Diet: Clear Liquid -> Renal No new wt; last wt: 145.5# (07/23) Labs noted: K+ 3.6, Ca 8.0, Alb 2.2 Meds noted: Protonix, electrolyte protocol -Rec advance diet as tolerated; clear liquids since admit. Rec consider nutrition support if unable to advance past clears. -Need new wt. -RD will follow up within 2-3 days.
[2020-07-27 15:49] VITALS: BP 150/62
--- NOTE | 2020-07-27 19:30 | NUR ---
PT IN BED, AAO X 2, RESP EVEN AND UNLABORED, NO DISTRESS NOTED, CL IN REACH, SR UP X 2.
[2020-07-27 21:59] VITALS: BP 153/53
[2020-07-28 00:17] VITALS: BP 141/56
--- NOTE | 2020-07-28 03:31 | NUR ---
I have reviewed this patient and I concur with the Shift Assessment completed by the Licensed Practical Nurse today this shift.
--- NOTE | 2020-07-28 03:35 | NUR ---
I have reviewed this patient and I concur with the Shift Assessment completed by the Licensed Practical Nurse today this shift.
--- NOTE | 2020-07-28 03:35 | NUR ---
I have reviewed this patient and I concur with the Shift Assessment completed by the Licensed Practical Nurse today this shift.
[2020-07-28 04:55] LABS: BASOPHILS 1.3 % (0-2); EOSINOPHILS 2.7 % (0-7); HEMATOCRIT 29.3 % (42.0-54.0); HEMOGLOBIN 9.8 g/dL (13.5-17.5); LYMPHOCYTES 10.8 % (15-50); MCH 30.6 pg (26.0-34.0); MCHC 33.5 g/dL (31.0-37.0); MCV 91.2 fL (80.0-100.0); MEAN PLATELET VOLUME 7.4 fL (7.4-10.4); NEUTROPHILS 73.2 % (40-80); PLATELET COUNT 188 10x3/uL (130-400); RBC 3.21 10x6/uL (4.20-6.10); RDW 20.5 % (11.5-14.5); WBC 5.4 10x3/uL (4.8-10.8)
[2020-07-28 05:28] LABS: ALBUMIN 2.4 g/dL (3.4-5.0); ANION GAP 14.7 mmol/L (8-16); BILIRUBIN - TOTAL 1.77 mg/dL (0.2-1.3); CALCIUM 8.1 mg/dL (8.5-10.1); CARBON DIOXIDE 27.7 mmol/L (21.0-32.0); POTASSIUM - SERUM 3.4 mmol/L (3.5-5.1); PROTEIN - SERUM 5.4 g/dL (6.4-8.2)
[2020-07-28 05:46] VITALS: BP 130/49
--- NOTE | 2020-07-28 07:20 | NUR ---
RECIEVE REPORT. RESTING IN BED WITH EYES CLOSED. AROUSES EASILY TO STIMULI. APHASIC. SALAZAR DRAINING BY GRAVITY. REPLACE POTASSIUM PER ELECTROLYTE PROTOCOL. ASSIST WITH JUICE TO TREAT GLUCOSE 73. CONTINUE PLAN OF CARE AND SAFETY PRECAUTIONS.
[2020-07-28 09:20] VITALS: BP 130/62
--- NOTE | 2020-07-28 11:00 | NUR ---
ALERT AND ORIENTED TO PERSON AND PLACE. SPOUSE AT BEDSIDE. PT ASSIST OOB TO CHAIR.
[2020-07-28 12:53] VITALS: BP 116/54
--- NOTE | 2020-07-28 14:42 | NUR ---
PT ASSIST OUT OF CHAIR BACK TO BED. STOOL COLLECTED AND TAKEN TO LAB. ALERT. TALKING MORE CLEARLY. FAMILY AT BEDSIDE. DENIES ANY NEEDS. NO SIGNS OF DISTRESS. CONTINUE PLAN OF CARE AND SAFETY PRECAUTIONS.
[2020-07-28 16:45] VITALS: BP 131/55
[2020-07-28 20:45] VITALS: BP 131/54
--- NOTE | 2020-07-28 21:00 | NUR ---
PT WAS TRANSFERED TO THIS HOSPITAL FROM [place] FOR A HEMAGLOBIN OF 3. HE IS A DIALYSIS PT AND HAS DIALYSIS M/W/F HERE. HE HAS A RIGHT CHEST HEMISPLIT. HE ALSO HAS A PD CATHETER IN THE ABDOMEN. HE WAS IN THE PROCESS OF LEARNING HOW TO DO PD AT HOME WHEN HE HAD A CVA. HIS STOOLS ARE DARK AND TARRY. HE HAS A RIGHT FOREARM SALINE LOCK. HE NEEDS SOME ASSIST WITH MEALS. HE HAS BEEN ALERT AND ORIENTED TONIGHT WHEN I WAS WITH HIM. HE TRIED TO SAY ALL OF HIS ABC'S. HE GOT TIRED IN THE MIDDLE. HIS URINE IS VERY DARK. PT IS ON 4 L O2. HE HAS 2 SIDERAILS UP AND HIS CALL LIGHT CLOSE AT HAND.
[2020-07-29 00:52] VITALS: BP 149/53
[2020-07-29 05:20] VITALS: BP 132/85
[2020-07-29 06:57] LABS: BASOPHILS 1.2 % (0-2); EOSINOPHILS 3.4 % (0-7); HEMATOCRIT 29.7 % (42.0-54.0); HEMOGLOBIN 10.1 g/dL (13.5-17.5); LYMPHOCYTES 9.6 % (15-50); MCH 30.2 pg (26.0-34.0); MEAN PLATELET VOLUME 7.4 fL (7.4-10.4); MONOCYTES 10.2 % (2-11); NEUTROPHILS 75.6 % (40-80); PLATELET COUNT 179 10x3/uL (130-400); RBC 3.36 10x6/uL (4.20-6.10); RDW 20.4 % (11.5-14.5); WBC 5.9 10x3/uL (4.8-10.8)
--- NOTE | 2020-07-29 07:00 | NUR ---
Lying in bed, awake/alert/oriented, T/R freq for C/C, incont of B/B with use of incont pads, pericare provided with daily bath and PRN, denies pain/other discomfort with a shake of the head, call light/phone/water within reach, no s/s of acute distress observed.
[2020-07-29 07:13] LABS: ALBUMIN 2.3 g/dL (3.4-5.0); ANION GAP 9.1 mmol/L (8-16); BILIRUBIN - TOTAL 1.37 mg/dL (0.2-1.3); CALCIUM 7.9 mg/dL (8.5-10.1); CARBON DIOXIDE 30.1 mmol/L (21.0-32.0); CREATININE - SERUM 2.4 mg/dL (0.6-1.3); POTASSIUM - SERUM 3.2 mmol/L (3.5-5.1); PROTEIN - SERUM 5.1 g/dL (6.4-8.2)
[2020-07-29 07:38] LABS: MCV 88.6 fL (80.0-100.0)
[2020-07-29 09:00] VITALS: BP 132/66
--- NOTE | 2020-07-29 13:50 | NUR ---
Nutrition Follow-up: Poor PO intake. HD today. Noted plans for d/c soon and OP EGD. Diet: Renal, Mech Soft with Ground Meat, 1:1 feeding PO intake: 11% avg x 6 meals (07/27-07/28) No new wt; last wt: 145.5# (07/24) Labs noted: K+ 3.2, BUN 25, Cre 2.4, GFR 28, Ca 7.9, Alb 2.3 Meds noted: Protonix, electrolyte protocol -Encourage PO intake and honor food preferences within diet restrictions. -+Nepro with meals. -Pt may benefit from an appetite stimulant. -Need new wt. -RD will follow up within 2 days if pt still admitted.
[2020-07-30 00:13] VITALS: BP 110/53
[2020-07-30 03:05] VITALS: BP 126/55
[2020-07-30 05:20] VITALS: BP 96/49
[2020-07-30 06:24] LABS: ALBUMIN 2.3 g/dL (3.4-5.0); ANION GAP 10.2 mmol/L (8-16); BILIRUBIN - TOTAL 1.5 mg/dL (0.2-1.3); CALCIUM 7.9 mg/dL (8.5-10.1); CARBON DIOXIDE 30.9 mmol/L (21.0-32.0); CREATININE - SERUM 2.1 mg/dL (0.6-1.3); POTASSIUM - SERUM 3.1 mmol/L (3.5-5.1); PROTEIN - SERUM 5.2 g/dL (6.4-8.2)
[2020-07-30 06:26] LABS: BASOPHILS 1.4 % (0-2); HEMATOCRIT 30.9 % (42.0-54.0); HEMOGLOBIN 10.4 g/dL (13.5-17.5); LYMPHOCYTES 8.2 % (15-50); MCH 29.9 pg (26.0-34.0); MCHC 33.5 g/dL (31.0-37.0); MCV 89.4 fL (80.0-100.0); MEAN PLATELET VOLUME 7.9 fL (7.4-10.4); MONOCYTES 13.1 % (2-11); NEUTROPHILS 75.3 % (40-80); PLATELET COUNT 164 10x3/uL (130-400); RBC 3.46 10x6/uL (4.20-6.10); RDW 20.8 % (11.5-14.5); WBC 5.9 10x3/uL (4.8-10.8)
--- NOTE | 2020-07-30 07:50 | NUR ---
Lying in bed, awake/alert/disoriented/confused, T/R freq for C/C, FC patent and draining concentrated urine to CDB in ample amt, cath care provided with daily bath and PRN, incont of bowel with incont pads in use, pericare provided with daily bath and PRN, no s/s of pain/other discomfort observed such as moaning/groaning/grimacing, call light/phone/water within reach, no s/s of acute distress observed.
[2020-07-30 09:00] VITALS: BP 109/47
[2020-07-30] MEDS ORDERED: IPRAT-ALBUT 0.5-3 ML INH (11:17)
[2020-07-30 12:00] VITALS: BP 123/50
--- NOTE | 2020-07-30 14:00 | NUR ---
Attempted to call report to [facility] [place], phone transferred to "Dolores" who states pt to have EGD prior to DC, [facility] case pickerproduct development manager pt is to have as an outpatient.
--- NOTE | 2020-07-30 15:20 | NUR ---
vd call from spouse questioning DC vs EGD, explained that "Dolores" wants to hold DC until EGD but there is no medical reason to do so, [facility]
--- NOTE | 2020-07-30 15:55 | NUR ---
Pt will receive Dialysis in AM and then DC to the [facility] in [place] after.
--- NOTE | 2020-07-30 16:15 | MORECARE ---
CASE MANAGEMENT DISCHARGE SUMMARY PATIENT: LEESA MORENO UNIT: [id number] ADM DATE: 07/23/20 AGE: 80 : 40 SEX: M ROOM/BED: D[facility]7 AUTHOR: PRANAV,DOC PHYSICIAN: REFERRING PHYSICIAN: MARCO ORTA MD DATE OF SERVICE: 07/30/20 Case Management Discharge Planning Summary DCP REVIEW SUMMARY ANTICIPATED D/C DATE: 07/31/2020 EXPECTED LOS : 8 CASE STATUS: DCP Initiated INITIAL REVIEW: 07/23/2020 INITIAL REVIEWER: Angela Antunez FINAL DISCHARGE DISPOSITION: 03 : Discharged/Trans to SNF with Medicare Certification in Anticipation of Skilled Care FINAL REVIEWER: FINAL REVIEW DATE: DCP [facility] Questions & Answers QUESTION: ANSWER : PATIENT: LEESA MORENO ENCOUNTER: [id number] MEDICAL RECORD#: [id number] ADMISSION DATE: 07/23/2020 DISCHARGE DATE: ATTENDING MD: : AGE: 80 MARITAL STATUS: M DC PLAN ID: [id number] FACILITY: [facility] PRINTED ON: 07/30/20 16:15 CT All edits/amendments must be made on the electronic document DICTATION DATE: 07/30/201614 TURNSTILE COLLECTOR: МАРИЯ 07/30/20 161 RPT#: [id number] DC DATE: STATUS: ADM IN [facility] [address] [place] [address] END OF REPORT
--- NOTE | 2020-07-30 16:29 | MORECARE ---
CASE MANAGEMENT DISCHARGE SUMMARY PATIENT: LEESA MORENO UNIT: [id number] ADM DATE: 07/23/20 AGE: 80 : 40 SEX: M ROOM/BED: D.2137 AUTHOR: PRANAV,DOC PHYSICIAN: REFERRING PHYSICIAN: MARCO ORTA MD DATE OF SERVICE: 07/30/20 Case Management Discharge Planning Summary COMMENTS ENTERED DATE: 07/30/20 16:23 CT COMMENT TYPE: Discharge Planning REVIEWER: Angela Antunez CM met with patient to complete discharge planning assessment and offer availability of needed services. Patient states that patient lived at home with her prior to admission to [facility]. Pat present in room at time of DCP and verified that home environment is safe and has electricity and running water. Patient denies need for transportation and state that they have funds for services and medications if needed. Pt will be returning to SNF upon discharge from hospital to resume stay and rehab. Transportation to SNF will be provided by EMS. Patient is aphasic, but did nod that he has an understanding of signed form. IMM served, and signed copy placed on chart. DCP REVIEW SUMMARY ANTICIPATED D/C DATE: 07/31/2020 EXPECTED LOS : 8 CASE STATUS: DCP Initiated INITIAL REVIEW: 07/23/2020 INITIAL REVIEWER: Angela Antunez FINAL DISCHARGE DISPOSITION: 03 : Discharged/Trans to SNF with Medicare Certification in Anticipation of Skilled Care FINAL REVIEWER: FINAL REVIEW DATE: [facility] Focus Questions & Answers QUESTION: ANSWER : PATIENT: LEESA MORENO ENCOUNTER: [id number] MEDICAL RECORD#: [id number] ADMISSION DATE: 07/23/2020 DISCHARGE DATE: ATTENDING MD: : AGE: 80 MARITAL STATUS: M DC PLAN ID: [id number] FACILITY: [facility] PRINTED ON: 07/30/20 16:29 CT All edits/amendments must be made on the electronic document DICTATION DATE: 07/30/201628 SCRAP CHARGER: МАРИЯ 07/30/201628 RPT#: [id number] DC DATE: STATUS: ADM IN [facility] [address] [place] [address] END OF REPORT
[2020-07-30 22:34] VITALS: BP 106/49
[2020-07-31 05:22] VITALS: BP 117/75
[2020-07-31 06:15] LABS: BASOPHILS 1.3 % (0-2); EOSINOPHILS 2.1 % (0-7); HEMOGLOBIN 10.8 g/dL (13.5-17.5); LYMPHOCYTES 10.1 % (15-50); MCH 30.1 pg (26.0-34.0); MCHC 33.7 g/dL (31.0-37.0); MCV 89.4 fL (80.0-100.0); MEAN PLATELET VOLUME 7.8 fL (7.4-10.4); MONOCYTES 12.2 % (2-11); NEUTROPHILS 74.3 % (40-80); PLATELET COUNT 179 10x3/uL (130-400); RBC 3.58 10x6/uL (4.20-6.10); RDW 20.3 % (11.5-14.5)
[2020-07-31 06:31] LABS: ALBUMIN 2.3 g/dL (3.4-5.0); ANION GAP 10.8 mmol/L (8-16); BILIRUBIN - TOTAL 1.8 mg/dL (0.2-1.3); CALCIUM 7.9 mg/dL (8.5-10.1); CARBON DIOXIDE 28.3 mmol/L (21.0-32.0); POTASSIUM - SERUM 3.1 mmol/L (3.5-5.1); PROTEIN - SERUM 5.2 g/dL (6.4-8.2)
[2020-07-31 06:32] LABS: CREATININE - SERUM 2.8 mg/dL (0.6-1.3)
--- NOTE | 2020-07-31 07:40 | NUR ---
Lying in bed, awake/alert/confused, T/R freq for C/C, FC patent and draining dark jenaro colored urine in ample amt, cath care provided with daily bath and PRN, incont of bowel with pericare provided with daily bath and PRN, no s/s of pain/other discomfort observed during visit, call light/phone/water within reach, no s/s of acute distress observed.
[2020-07-31 09:00] VITALS: BP 117/50
--- NOTE | 2020-07-31 12:48 | NUR ---
Nutrition Reassessment/Follow-up: Poor PO intake. HD MWF. Noted plans to d/c soon. Diet: Renal, Mech Soft w Ground Meat, 1:1 feeding, Nepro TID WT: 127# (07/30) Labs noted: K+ 3.1, BUN 23, Cre 2.8, GFR 23, Ca 7.9, Alb 2.3 Meds noted: Protonix, electrolyte protocol Est needs: 8652-4347 kcal/day (30-35 kcal/kg) 70-75 g protein/day (1.2-1.3 g/kg) Fluid: 1000 mL + UOP Nutrition Dx: -Using the following GLIM criteria, pt assessed with severe malnutrition: 1. Phenotypic -Low BMI -BMI 19.9 in an 80 year old 2. Etiologic -Reduced nutritional intake -PO intake <=50% of requirement for >1 wk -Inflammation -ESRD on HD -Nutrition goals unchanged. -Encourage PO intake and honor food preferences within diet restrictions. -Continue current diet and supplements as tolerated. -Monitor wt. -RD will follow up within 3-4 days.
[2020-07-31 16:00] VITALS: BP 120/56
--- NOTE | 2020-07-31 18:01 | MORECARE ---
CASE MANAGEMENT DISCHARGE SUMMARY PATIENT: LEESA MORENO UNIT: [id number] ADM DATE: 07/23/20 AGE: 80 : 40 SEX: M ROOM/BED: D.2137 AUTHOR: PRANAV,DOC PHYSICIAN: REFERRING PHYSICIAN: MARCO ORTA MD DATE OF SERVICE: 07/31/20 Case Management Discharge Planning Summary COMMENTS ENTERED DATE: 07/30/20 16:23 CT COMMENT TYPE: Discharge Planning REVIEWER: Angela Antunez CM met with patient to complete discharge planning assessment and offer availability of needed services. Patient states that patient lived at home with her prior to admission to [facility]. Pat present in room at time of DCP and verified that home environment is safe and has electricity and running water. Patient denies need for transportation and state that they have funds for services and medications if needed. Pt will be returning to SNF upon discharge from hospital to resume stay and rehab. Transportation to SNF will be provided by EMS. Patient is aphasic, but did nod that he has an understanding of signed form. IMM served, and signed copy placed on chart. DCP REVIEW SUMMARY ANTICIPATED D/C DATE: 07/31/2020 EXPECTED LOS : 8 CASE STATUS: DCP Initiated INITIAL REVIEW: 07/23/2020 INITIAL REVIEWER: Angela Antunez FINAL DISCHARGE DISPOSITION: 03 : Discharged/Trans to SNF with Medicare Certification in Anticipation of Skilled Care FINAL REVIEWER: FINAL REVIEW DATE: [facility] Focus Questions & Answers QUESTION: ANSWER : PATIENT: LEESA MORENO ENCOUNTER: [id number] MEDICAL RECORD#: [id number] ADMISSION DATE: 07/23/2020 DISCHARGE DATE: 07/31/2020 ATTENDING MD: : AGE: 80 MARITAL STATUS: M DC PLAN ID: [id number] FACILITY: [facility] PRINTED ON: 07/31/20 18:00 CT All edits/amendments must be made on the electronic document DICTATION DATE: 07/31/20 1800 RESAW CARRIAGE OPERATOR: МАРИЯ 07/31/20 1800 RPT#: [id number] DC DATE:07/31/20 STATUS: DIS IN [facility] [address] [place] [address] END OF REPORT
--- NOTE | 2020-08-02 17:49 | MORECARE ---
CASE MANAGEMENT DISCHARGE SUMMARY PATIENT: LEESA MORENO UNIT: [id number] ADM DATE: 07/23/20 AGE: 80 : 40 SEX: M ROOM/BED: D.2137 AUTHOR: PRANAV,DOC PHYSICIAN: REFERRING PHYSICIAN: MARCO ORTA MD DATE OF SERVICE: 08/02/20 Case Management Discharge Planning Summary COMMENTS ENTERED DATE: 07/30/20 16:23 CT COMMENT TYPE: Discharge Planning REVIEWER: Angela Antunez CM met with patient to complete discharge planning assessment and offer availability of needed services. Patient states that patient lived at home with her prior to admission to [facility]. Pat present in room at time of DCP and verified that home environment is safe and has electricity and running water. Patient denies need for transportation and state that they have funds for services and medications if needed. Pt will be returning to SNF upon discharge from hospital to resume stay and rehab. Transportation to SNF will be provided by EMS. Patient is aphasic, but did nod that he has an understanding of signed form. IMM served, and signed copy placed on chart. DCP REVIEW SUMMARY ANTICIPATED D/C DATE: 07/31/2020 EXPECTED LOS : 8 CASE STATUS: DCP Complete INITIAL REVIEW: 07/23/2020 INITIAL REVIEWER: Angela Antunez FINAL DISCHARGE DISPOSITION: 03 : Discharged/Trans to SNF with Medicare Certification in Anticipation of Skilled Care FINAL REVIEWER: FINAL REVIEW DATE: [facility] Focus Questions & Answers QUESTION: ANSWER : PATIENT: LEESA MORENO ENCOUNTER: [id number] MEDICAL RECORD#: [id number] ADMISSION DATE: 07/23/2020 DISCHARGE DATE: 07/31/2020 ATTENDING MD: : AGE: 80 MARITAL STATUS: M DC PLAN ID: [id number] FACILITY: [facility] PRINTED ON: 08/02/20 17:49 CT All edits/amendments must be made on the electronic document DICTATION DATE: 08/02/201748 RECRUITER MANAGER: МАРИЯ 08/02/201748 RPT#: [id number] DC DATE:07/31/20 STATUS: DIS IN [facility] [address] [place] [address] END OF REPORT
== END 2020-07-31 17:55 | DRG 682 ==
LOC: D.ER 19:49 → D.EDHOLD 20:10 → D.M2 20:10
PROVIDERS: Emergency Medicine; ADMIT Family Medicine; ATTEND Family Medicine
DX: I12.0 Hypertensive chronic kidney disease with stage 5 chronic kidney disease or end stage renal disease (principal); N18.6 End stage renal disease; I48.21 Permanent atrial fibrillation; Z99.2 Dependence on renal dialysis; I69.320 Aphasia following cerebral infarction; D63.1 Anemia in chronic kidney disease; J44.9 Chronic obstructive pulmonary disease, unspecified; Z79.02 Long term (current) use of antithrombotics/antiplatelets; Z66 Do not resuscitate; I35.0 Nonrheumatic aortic (valve) stenosis; I49.5 Sick sinus syndrome